=== PATIENT | female | born 1945 | race Caucasian/White ===

== ENCOUNTER 2023-03-05 20:14 | Inpatient (IN) | payer MEDICARE, SELFPAY ==
[2023-03-05 20:15] VITALS: BP 154/94; PULSE 130; RESP 15; TEMP 35.9; O2SAT 97; BMI 31.4
--- NOTE | 2023-03-05 21:09 | ED.VIS.DYS ---
HPI History of Present Illness Chief Complaint: Shortness of Breath Informant: patient Narrative Narrative: Patient has been noticing dyspnea with exertion for the past 2 or 3 days. She has had no other symptoms but this is unusual for her. She denies feeling any chest discomfort, lightheadedness, palpitations or racing heartbeat, edema in her legs, orthopnea. When she rests, she is asymptomatic. She states she was diagnosed with congestive heart failure months, she is on medications for that, she does not know why. Never had a heart attack or stent, she denies having uncontrolled hypertension that she knows of, or dysrhythmias. [facility] Medical History CHF (congestive heart failure) HTN (hypertension) Hyperlipidemia Home Medications atorvastatin 40 mg tablet 40 mg PO DAILY 03/05/23 [History Last Taken Unknown] biotin 5,000 mcg chewable tablet 5,000 mcg PO DAILY 03/05/23 [History Last Taken Unknown] cholecalciferol (vitamin D3) 25 mcg (1,000 unit) capsule 25 mcg PO DAILY 03/05/23 [History Last Taken Unknown] furosemide 20 mg tablet 20 mg PO DAILY 03/05/23 [History Last Taken Unknown] lisinopril 30 mg tablet 30 mg PO DAILY 03/05/23 [History Last Taken Unknown] magnesium 250 mg tablet 250 mg PO DAILY 03/05/23 [History Last Taken Unknown] mecobalamin (vitamin B12) 500 mcg chewable tablet 500 mcg PO DAILY 03/05/23 [History Last Taken Unknown] metformin 500 mg tablet,extended release 24 hr 1,000 mg PO BID 03/05/23 [History Last Taken Unknown] metoprolol tartrate 25 mg tablet 12.5 mg PO Q12H 03/05/23 [History Last Taken Unknown] potassium chloride 20 mEq tablet,extended release(part/cryst) 10 meq PO BID 03/05/23 [History Last Taken Unknown] Allergy/AdvReac Type Severity Reaction Status Date / Time No Known Allergies Allergy Verified 03/05/23 20:18 Social History housing: house Smoking Status: Never smoker ROS ROS ED Constitutional Constitutional ED: Denies chills or fever(s) Eyes Eyes: Denies change in vision or diplopia ENT ENT ED: Denies rhinorrhea or sore throat Cardiovascular Cardiovascular: Denies chest pain, orthopnea or palpitations Respiratory/Chest Respiratory/Chest: Reports dyspnea on exertion; Denies cough or orthopnea Gastrointestinal Gastrointestinal: Denies abdominal pain, diarrhea, nausea or vomiting Genitourinary Genitourinary ED: Denies dysuria or hematuria Musculoskeletal Musculoskeletal: Denies back pain or neck pain Integumentary Denies abscess or rash Neurologic Neurologic: Denies headache(s), paresthesias or weakness Psychiatric Psychiatric: Denies anxiety or suicidal thoughts EXAM Physical Exam Const Vital Signs: 03/05/23 20:15 03/05/23 21:12 03/05/23 21:25 Temperature 96.7 F L Temperature Source Temporal Pulse Rate 130 H 138 H Respiratory Rate 15 Blood Pressure 154/94 H 135/104 H Blood Pressure Mean 114 114 Pulse Ox 97 Oxygen Delivery Method Room Air Room Air 03/05/23 22:54 Temperature Temperature Source Pulse Rate 138 H Respiratory Rate 21 H Blood Pressure 140/108 H Blood Pressure Mean 118 Pulse Ox Oxygen Delivery Method Positive well nourished and well developed General Appearance ED: well developed and NAD HEENT Reports moist mucous membranes normocephalic and atraumatic Eyes PERRL and EOMs intact bilaterally Neck full ROM, supple and no JVD Resp normal respiratory effort and clear to auscultation bilaterally Cardio no murmurs Rate: tachycardic Rhythm: abnormal rhythm irregularly irregular GI non-tender and non-distended Auscultation: normoactive bowel sounds Palpation: soft Back/Spine no CVA tenderness General Back: other FROM Extremity normal to inspection General Extremety ED: Negative for edema, pulses abnormal or tenderness General Extremity: Negative for edema or pulses abnormal Neuro oriented x3, CN's II-XII intact bilaterally and no sensory deficits noted Sensorium / Orientation: awake and alert Motor Exam: strength 5/5 throughout Psych mental status grossly normal Skin no rashes or lesions noted and no wounds MDM MDM MDM Narrative Medical decision making narrative: EKG obtained patient appears to be in A-fib with RVR, she is not symptomatic at rest with this, although she is tachycardic at rest and that she is on metoprolol 12.5 mg twice daily. She states within the last month or 2, this was decreased from 25 mg twice daily because she was feeling tired/weak. While working her up, she was given Cardizem 20 mg IV, this resulted in an occasional dip into the 90s with her heart rate but for the most part staying in the 130s. Pressure came down to the 130s, staying stable. We ambulated her a little, still dyspneic and HR staying 120-130's. Given that we are not able to easily rate control her, I am starting her on a Cardizem drip, plan will be to admit her to the hospital. Her troponin is nonspecifically elevated, not high enough to be consistent with an NSTEMI, this will be repeated. Her [id number] 2 score is 5, qualifying her for anticoagulation. Chest x-ray 2 views on my interpretation does not show acute CHF although radiology notes Dre B lines suggesting some interstitial edema, and with her mild renal insufficiency her proBNP is only in the 200s, suggesting she is not in florid decompensated congestive heart failure. We did work her up for a possibility of a PE although she has no specific risk for this, her D-dimer is well within normal limits, ruling that out at this time given that she meets Wells criteria to undergo that test for that reason. Lovenox 1 mg/kg subcu given, and we will start her on a Cardizem drip and admit her to the hospital. [id number] Score for Atrial Fibrillation Stroke Risk from [email or web address] on 03/05/2023 All calculations should be rechecked by clinician prior to use RESULT SUMMARY: 5 points Stroke risk was 7.2% per year in >90,000 patients (the [place] Atrial Fibrillation Cohort Study) and 10.0% risk of stroke/TIA/systemic embolism. One recommendation suggests a 0 score for men or 1 score for women (no clinical risk factors) is ?low? risk and may not require anticoagulation; a 1 score for men or 2 score for women is ?low-moderate? risk and should consider antiplatelet or anticoagulation; and a score >= for men or >= for women is ?moderate-high? risk and should otherwise be an anticoagulation candidate. INPUTS: Age ?> 2 = >=5 Sex ?> 1 = Female CHF history ?> 1 = Yes Hypertension history ?> 1 = Yes Stroke/TIA/thromboembolism history ?> 0 = No Vascular disease history (prior [place], peripheral artery disease, or aortic plaque) ?> 0 = No Diabetes history ?> 0 = No Lab Data Attestation: I reviewed the patient's lab results. Labs: Laboratory Results - last 24 hr 03/05/23 03/05/23 21:22 22:18 WBC 7.7 RBC 4.09 L Hgb 11.8 L Hct 37.4 MCV 91.4 MCH 28.9 MCHC 31.6 L RDW Std Deviation 46.0 H RDW Coeff of Mayuri 13.9 Plt Count 193 MPV 10.7 Immature Gran % (Auto) 0.400 Neut % (Auto) 50.9 Lymph % (Auto) 37.2 [place] % (Auto) 8.4 Eos % (Auto) 2.5 Baso % (Auto) 0.6 Absolute Neuts (auto) 3.9 Absolute Lymphs (auto) 2.87 Nucleated RBC % 0 D-Dimer Quant (PE/DVT) 0.48 Sodium 139 Potassium 4.2 Chloride 108 H Carbon Dioxide 25.0 Anion Gap 6 BUN 27 H Creatinine 1.21 H Estim Creat Clear Calc 31.28 Est GFR (MDRD) Af Amer 56 L Est GFR (MDRD) Non-Af 46 L BUN/Creatinine Ratio 22.3 H Glucose 108 H Calcium 9.1 Troponin I High Sens 122 H* 130 H* B-Natriuretic Peptide 214.7 H Radiography Chest X-Ray - ED: 2 View, Read by ED Physician and No Acute Disease Diagnostic Testing: Clinical Impression(s) from Imaging Studies Chest X-Ray 03/05/23 21:58 IMPRESSION: The presence of Dre B lines suggests mild interstitial edema. Electronically Signed: Jose Kelley MD at 22:29 EDT , Rhythm Strip Rhythm Strip: A-fib Rate: 130 Ectopy: None EKG Initial EKG: Attestation: I personally reviewed and interpreted this EKG as follows: Interpretation: No Acute Injury Pattern, Atrial Fibrillation (w/ RVR) and Non-Specific ST Changes Prior EKG tracings: not available for review Prior: No Prior Management Discussion w/another healthcare provider: Hospitalist Critical Care Time Critical Care Time: Yes Critical care time (excluding procedures): 30-74 minutes (32 min), Including time spent:, Discussing w/Patient &/or Family/Assembly Stock Supervisor, Discussing w/Consultants, Arranging Admission or Transfer and Performing Direct Patient Care at Bedside Discharge Plan Triage Chief Complaint: Shortness of Breath ED Provider: Manohar Kiran Dx/Rx/DC Orders Clinical Impression: Elevated troponin I level, Renal insufficiency, Atrial fibrillation with RVR Prescriptions: No Action atorvastatin 40 mg tablet 40 mg PO DAILY potassium chloride 20 mEq tablet,ER particles/crystals 10 meq PO BID lisinopril 30 mg tablet 30 mg PO DAILY furosemide 20 mg tablet 20 mg PO DAILY metformin 500 mg tablet extended release 24 hr 1,000 mg PO BID metoprolol tartrate 25 mg tablet 12.5 mg PO Q12H mecobalamin (vitamin B12) 500 mcg tablet,chewable 500 mcg PO DAILY cholecalciferol (vitamin D3) 25 mcg (1,000 unit) capsule 25 mcg PO DAILY biotin 5,000 mcg tablet,chewable 5,000 mcg PO DAILY magnesium 250 mg tablet 250 mg PO DAILY Primary Care Provider: Matthew Lea Referrals: Matthew Lea MD [Primary Care Provider] -
[2023-03-05 21:25] VITALS: BP 135/104; PULSE 138
[2023-03-05] MEDS: dilTIAZem 25 MG/5 ML Vial 20 MG IV BOLUS (21:27)
[2023-03-05 21:31] LABS: Absolute Lymphocyte Count 2.87 X10^3/uL (0.83-4.51); Absolute Neutrophil Count 3.9 X10^3/uL (2.0-7.7); Basophil# 0.05 X10^3/uL; Basophil% 0.6 % (0-1); Eosinophil# 0.19 X10^3/uL; Eosinophils% 2.5 % (0-5); Hematocrit 37.4 % (37-47); Hemoglobin 11.8 g/dL (12.0-15.0); Lymphocyte # 2.87 X10^3/ul (0.83-4.51); Lymphocyte % 37.2 % (19-41); Mean Corp Hgb Conc 31.6 g/dL (32-36); Mean Corpuscular Hgb 28.9 pg (27.0-32.0); Mean Corpuscular Volume 91.4 fL (81-99); Mean Platelet Vol. 10.7 fl (6.2-12.0); Monocyte# 0.65 X10^3/uL; Monocyte% 8.4 % (0-10); NRBC Flagged by Analyzer 0 % (0-5); Neutrophil # 3.93 X10^3/uL (2.7-7.7); Neutrophil % 50.9 % (47-70); Platelet Count 193 K/mm3 (150-450); RBC Distribution Width CV 13.9 % (11.6-14.6); Red Blood Count 4.09 M/mm3 (4.2-5.4); White Blood Count 7.7 K/mm3 (4.4-11.0)
[2023-03-05 21:40] LABS: D-Dimer Quantitative (DVT/PE) 0.48 FEU/ug/m (0.27-0.49)
[2023-03-05 21:58] LABS: Anion Gap 6 (5-15); BUN 27 mg/dL (7-18); BUN/Creat Ratio 22.3 RATIO (10-20); Calcium,Total 9.1 mg/dL (8.5-10.1); Chloride 108 mmol/L (98-107); Creatinine, Serum 1.21 mg/dL (0.55-1.02); EST Glomerular Filtration Rate 46 mL/min (>60); Est Glom Filt Rate - Afr Amer 56 mL/min (>60); Estimated Creatinine Clearance 31.28 ml/min; Glucose 108 mg/dL (74-106); Potassium 4.2 mmol/L (3.5-5.1); Sodium Level 139 mmol/L (136-145); Troponin-I HS 122 pg/mL (3.0-54.0)
--- NOTE | 2023-03-05 21:58 | RAD_ITS ---
INDICATION: dyspnea EXAMINATION/TECHNIQUE: X-RAY - XR Chest 2 Views COMPARISON: No relevant prior comparison study available FINDINGS: LINES/DEVICES: Cardiac leads overlie the chest. LUNGS: The lungs are well expanded. Dre B lines are noted. No dense consolidation. No effusion. No pneumothorax. MEDIASTINUM AND CARDIOVASCULAR STRUCTURES: Cardiac silhouette not enlarged. Central airways and mediastinal contour are unremarkable. BONES AND SOFT TISSUES: Degenerative changes throughout the spine. RAD/Chest PA and Lateral IMPRESSION: The presence of Dre B lines suggests mild interstitial edema. Electronically Signed: Jose Kelley MD at 22:29 EDT ,
[2023-03-05 22:01] LABS: BNP,B-Type NATRIURETIC PEPTIDE 214.7 pg/mL (0-100)
[2023-03-05] MEDS: Enoxaparin 80 MG/0.8 ML Syringe SC (22:31)
[2023-03-05 22:54] VITALS: BP 140/108; PULSE 138; RESP 21
[2023-03-05] MEDS: Diltiazem 125 MG in Dextrose 5%-Water (100mL Bag) 100 ML CONT INF (22:54)
[2023-03-05 22:55] LABS: Troponin-I HS 130 pg/mL (3.0-54.0)
--- NOTE | 2023-03-05 23:07 | PCM.HP.STD ---
[facility] - General General Date of Admission: 03/05/23 Date of Service: 03/05/23 Chief Complaint: Dyspnea on exertion HPI Narrative AVANI MENDEZ, is a 78 F significant history of congestive heart failure; hypertension; hyperlipidemia and diabetes mellitus who presents to the emergency department with 2 to 3 days of persistent dyspnea on exertion. Associated with her symptoms is mild pain in her left arm that she describes as a twinge. Her left arm pain occurred on the day before presentation and is no more. She reports that in the cause of 1 year she has gained about 30 pounds. She has gained this weight since she is unable to follow recommendations of weight watchers at this time. She was prescribed a new diet plan when she disclosed to weight watchers that she is diabetic. She is unable to follow this stringent diet plan and as such she has gained weight. She reports a weight gain of half pound in the past week or so. She uses 1 pillow to sleep chronically; and that has not changed. She denies paroxysmal dyspnea. She denies any edema. She reports a diagnosis of congestive not too long after hysterectomy. She had the hysterectomy about 20 years ago. Reportedly because of fatigue her metoprolol dose was decreased from 25 mg p.o. twice daily to 12.5 mg twice daily. [facility] Medical History (Updated 03/06/23 @ 00:[address] Heladio Guzman MD) CHF (congestive heart failure) HTN (hypertension) Hyperlipidemia Home Medications atorvastatin 40 mg tablet 40 mg PO DAILY 03/05/23 [History Last Taken Unknown] biotin 5,000 mcg chewable tablet 5,000 mcg PO DAILY 03/05/23 [History Last Taken Unknown] cholecalciferol (vitamin D3) 25 mcg (1,000 unit) capsule 25 mcg PO DAILY 03/05/23 [History Last Taken Unknown] furosemide 20 mg tablet 20 mg PO DAILY 03/05/23 [History Last Taken Unknown] lisinopril 30 mg tablet 30 mg PO DAILY 03/05/23 [History Last Taken Unknown] magnesium 250 mg tablet 250 mg PO DAILY 03/05/23 [History Last Taken Unknown] mecobalamin (vitamin B12) 500 mcg chewable tablet 500 mcg PO DAILY 03/05/23 [History Last Taken Unknown] metformin 500 mg tablet,extended release 24 hr 1,000 mg PO BID 03/05/23 [History Last Taken Unknown] metoprolol tartrate 25 mg tablet 12.5 mg PO Q12H 03/05/23 [History Last Taken Unknown] potassium chloride 20 mEq tablet,extended release(part/cryst) 10 meq PO BID 03/05/23 [History Last Taken Unknown] Allergy/AdvReac Type Severity Reaction Status Date / Time No Known Allergies Allergy Verified 03/05/23 20:18 Family History Other Diabetes Heart disease Surgical History H/O: hysterectomy Social History housing: house Smoking Status: Never smoker ROS ROS Narrative Pertinent positives and pertinent negatives as noted in HPI. All other systems were reviewed and are negative Vital Signs Vital Signs Vital Signs: 03/05/23 20:15 03/05/23 21:12 03/05/23 21:25 Temperature 96.7 F L Temperature Source Temporal Pulse Rate 130 H 138 H Respiratory Rate 15 Blood Pressure 154/94 H 135/104 H Blood Pressure Mean 114 114 Pulse Ox 97 Oxygen Delivery Method Room Air Room Air 03/05/23 22:54 Temperature Temperature Source Pulse Rate 138 H Respiratory Rate 21 H Blood Pressure 140/108 H Blood Pressure Mean 118 Pulse Ox Oxygen Delivery Method Weight Weight: 78.018 kg Body Mass Index (BMI) 31.4 Physical Exam Narrative Physical exam: General: Well-nourished, well-developed. Head: Normocephalic, atraumatic, no tenderness Eyes: Vision is grossly intact. EOMI ENT, no trauma, moist mucous membranes, no rhinorrhea Neck: Nontender, No thyromegaly. CVS: Tachycardia. Irregularly irregular rate and rhythm. S1-S2 present. No murmur, gallop or rub. Respiratory : clear to auscultation bilaterally, chest wall nontender Abdomen: Soft, nontender, nondistended, normal bowel sounds, no masses : Deferred Back: Nontender, no CVA tenderness, no midline spinal tenderness, deformities, step-offs Extremities: Nontender full range of motion, no trauma Skin: Normal color, no trauma, abrasions Neuro: Alert, oriented, cranial nerves II through XII grossly intact. Psychiatry: Normal mood. Normal affect. Not depressed. Not anxious. Results Lab / Micro Data 03/05/23 21:22 03/05/23 21:22 Labs: Laboratory Results - last 24 hr 03/05/23 21:22: WBC 7.7, RBC 4.09 L, Hgb 11.8 L, Hct 37.4, MCV 91.4, MCH 28.9, MCHC 31.6 L, RDW Std Deviation 46.0 H, RDW Coeff of Mayuri 13.9, Plt Count 193, MPV 10.7, Immature Gran % (Auto) 0.400, Neut % (Auto) 50.9, Lymph % (Auto) 37.2, [place] % (Auto) 8.4, Eos % (Auto) 2.5, Baso % (Auto) 0.6, Absolute Neuts (auto) 3.9, Absolute Lymphs (auto) 2.87, Nucleated RBC % 0, D-Dimer Quant (PE/DVT) 0.48, Sodium 139, Potassium 4.2, Chloride 108 H, Carbon Dioxide 25.0, Anion Gap 6, BUN 27 H, Creatinine 1.21 H, Estim Creat Clear Calc 31.28, Est GFR (MDRD) Af Amer 56 L, Est GFR (MDRD) Non-Af 46 L, BUN/Creatinine Ratio 22.3 H, Glucose 108 H, Calcium 9.1, Troponin I High Sens 122 H*, B-Natriuretic Peptide 214.7 H 03/05/23 22:18: Troponin I High Sens 130 H* Rhythm Strip Rhythm Strip: A-fib Rate: 130 Ectopy: None Radiology Impression Chest X-Ray 03/05/23 21:58 IMPRESSION: The presence of Dre B lines suggests mild interstitial edema. Electronically Signed: Jose Kelley MD at 22:29 EDT Reading Location ID and State: [facility] / [place] Tel , Service support , Assessment & Plan Assessment/Plan (1) Atrial fibrillation with RVR: (2) Elevated troponin I level: PLAN: Plan A-fib with RVR Telemetry showed A-fib with RVR. EKG personally interpreted showed A-fib with RVR. Place on PCU on telemetry Obtain echo Lovenox 1 mg per kilogram subcutaneous every 12 hours For rate control: Started on Cardizem drip in the emergency department and continued. Give x1 scheduled dose of metoprolol p.o. then continue home metoprolol. Potassium on presentation was normal. Magnesium continued. Home potassium supplementation continued. Check magnesium. Check TSH. Recheck BMP. Check lipid panel. Elevated troponin Troponin presentation was 122. Trended to 130. Likely heart rate mediated. But with a twinge in left it is concerning. Continue to trend. Lovenox as above. Diabetes mellitus Patient with euglycemia. Hold home metformin. Monitor Accu-Cheks Correction scale insulin ordered. Elevated creatinine Creatinine on presentation was 1.21. GFR is 56. No baseline in hospital system or community records to compare with. Trend BMP. Chronic congestive heart failure Review of community records shows start echocardiogram on 12/05/2021 patient had preserved ejection fraction but with stage II diastolic dysfunction. Mild tricuspid valve regurgitation. Mild pulmonary hypertension. Estimated right ventricular pressure was 46 mmHg. Trace mitral valve regurgitation. BNP on presentation was 214.7. Chest x-ray interpreted by radiology as appearance of Saritha B-lines. X-ray was independently interpreted by hospitalist: Agrees to radiology interpretation. With not excessive BNP this could be chronic. We will continue home Lasix. Cardiac and diabetic diet ordered. Fluid restriction ordered. Home furosemide continued. DVT prophylaxis Subcutaneous Lovenox ordered. Time spent in the patient's overall evaluation,decision-making process, review of diagnostic data, adjustment of management, discussion with other providers, nursing nursing and ancillary staff involved in patient's care documentation, 60 minutes. Charges/Coding Visit Charges Inpatient E&M: 13389 Init Hosp L3
[2023-03-05 23:40] VITALS: BP 149/99; PULSE 116; RESP 22; TEMP 36.7; O2SAT 96
[2023-03-05 23:45] VITALS: O2SAT 98
[2023-03-06] VITALS (31 sets, daily range): BP systolic 103–138; BP diastolic 61–105; PULSE 68–129; RESP 14–24; TEMP 36.5–36.7; O2SAT 92–98; BMI 32.1; BMI 31.9
[2023-03-06] MEDS: Diltiazem 125 MG in Dextrose 5%-Water (100mL Bag) 100 ML 10 MG CONT INF ×2 (00:46→12:08)
[2023-03-06] MEDS: Metoprolol Tartrate 25 MG Tablet PO ×2 (01:09→21:16)
[2023-03-06 01:24] LABS: Bedside Glucose 145 mg/dL (74-106)
[2023-03-06 04:02] LABS: Absolute Lymphocyte Count 2.98 X10^3/uL (0.83-4.51); Absolute Neutrophil Count 4.1 X10^3/uL (2.0-7.7); Basophil# 0.02 X10^3/uL; Basophil% 0.2 % (0-1); Eosinophil# 0.23 X10^3/uL; Eosinophils% 2.9 % (0-5); Hematocrit 36.1 % (37-47); Hemoglobin 11.4 g/dL (12.0-15.0); Lymphocyte # 2.98 X10^3/ul (0.83-4.51); Lymphocyte % 37.1 % (19-41); Mean Corp Hgb Conc 31.6 g/dL (32-36); Mean Corpuscular Hgb 29.1 pg (27.0-32.0); Mean Corpuscular Volume 92.1 fL (81-99); Mean Platelet Vol. 10.9 fl (6.2-12.0); Monocyte# 0.65 X10^3/uL; Monocyte% 8.1 % (0-10); NRBC Flagged by Analyzer 0 % (0-5); Neutrophil # 4.13 X10^3/uL (2.7-7.7); Neutrophil % 51.5 % (47-70); Platelet Count 194 K/mm3 (150-450); RBC Distribution Width CV 13.9 % (11.6-14.6); RBC Distribution Width SD 46.3 fl (35.1-43.9); Red Blood Count 3.92 M/mm3 (4.2-5.4)
[2023-03-06 04:40] LABS: Troponin-I HS 124 pg/mL (3.0-54.0)
[2023-03-06 04:45] LABS: Anion Gap 7 (5-15); BUN 23 mg/dL (7-18); BUN/Creat Ratio 23.3 RATIO (10-20); Calcium,Total 8.7 mg/dL (8.5-10.1); Chloride 111 mmol/L (98-107); Cholesterol 120 mg/dL (200); Creatinine, Serum 0.99 mg/dL (0.55-1.02); EST Glomerular Filtration Rate 58 mL/min (>60); Est Glom Filt Rate - Afr Amer 71 mL/min (>60); Estimated Creatinine Clearance 36.48 ml/min; Glucose 133 mg/dL (74-106); High Density Lipoprotein 57 mg/dL; Sodium Level 141 mmol/L (136-145); Thyroid Stim Hormone (TSH) 2.19 uIU/mL (0.358-3.74); Triglycerides 99 mg/dL; Very Low Density Lipoprotein 20 mg/dL (5-40)
--- NOTE | 2023-03-06 05:55 | ECHOD_ITS ---
Reason For Study: AFib/Flutter Procedure This was a 2D Doppler, Color Flow transthoracic echocardiogram. Exam performed portable in patient room. Left Ventricle Normal size and thickness. The left ventricular ejection fraction is 45 %. Unable to assess diastolic dysfunction due to arrhythmia. Right Ventricle Normal RV size. Mild to moderate global right ventricular systolic dysfunction. Atria The left atrium is severely enlarged. The right atrium is moderately enlarged. Mitral Valve Mild-Moderate (1-2+) eccentric mitral valve insufficiency. Tricuspid Valve Moderately severe (3+) eccentric tricuspid valve insufficiency. Right ventricular systolic pressure estimated to be 40 mmHg. Aortic Valve Trisinus/trileaflet aortic valve. Pulmonic Valve The pulmonic valve is not well visualized. Great Vessels Normal sized aortic root. Pericardium/Pleural No pericardial effusion. MMode/2D Measurements & Calculations LVIDd: 5.4 cm IVSd: 1.0 cm Ao root diam: 3.2 cm LVIDs: 4.8 cm LVPWd: 1.0 cm LA dimension: 4.8 cm RVDd: 3.4 cm FS: 12.2 % LAV(MOD-bp): 77.0 ml LVAd ap4: 32.0 cm2 SV(MOD-sp4): 42.9 ml LAV(MOD-bp) Indexed: 43.0 ml/m2 LVLd ap4: 7.9 cm LAV(MOD-sp2): 68.2 ml EDV(MOD-sp4): 109.2 ml LAV(MOD-sp4): 71.7 ml EDV(sp4-el): 110.6 ml LVAs ap4: 24.0 cm2 LVLs ap4: 7.5 cm ESV(MOD-sp4): 66.3 ml ESV(sp4-el): 65.7 ml EF(MOD-sp4): 39.3 % EF(sp4-el): 40.6 % SV(sp4-el): 44.9 ml LA A4 area: 23.0 cm2 RA A4 area: 20.5 cm2 TAPSE: 1.5 cm Doppler Measurements & Calculations MV E max joe: 91.4 cm/sec Lat Peak E' Joe: 9.5 cm/sec Med Peak E' Joe: 9.9 cm/sec E/E' lat: 9.6 E/E' med: 9.2 MV V2 max: 115.0 cm/sec Ao V2 max: 96.9 cm/sec LV V1 max: 92.4 cm/sec MV max P.3 mmHg Ao max P.9 mmHg LV V1 max P.5 mmHg MV V2 mean: 53.5 cm/sec Ao V2 mean: 67.4 cm/sec LV V1 mean P.0 mmHg MV mean P.6 mmHg Ao mean P.1 mmHg LV V1 mean: 65.7 cm/sec MV V2 VTI: 28.0 cm Ao V2 VTI: 20.2 cm LV V1 VTI: 17.3 cm AV (velocity ratio): 0.86 PA V2 max: 56.0 cm/sec TR max joe: 295.1 cm/sec TR max P.8 mmHg ECHO/Echo Complete Interpretation Summary The left ventricular ejection fraction is 40-45 %. Unable to assess diastolic dysfunction due to arrhythmia. Mild to moderate global right ventricular systolic dysfunction. The left atrium is severely enlarged. Mild-Moderate (1-2+) eccentric mitral valve insufficiency. Moderately severe (3+) eccentric tricuspid valve insufficiency. Right ventricular systolic pressure estimated to be 40 mmHg. Ordering Physician: Heladio Guzman Performed By: Crow Rankin RCS
[2023-03-06 06:45] LABS: Bedside Glucose 124 mg/dL (74-106)
[2023-03-06] MEDS: Potassium Chloride Oral Tablet 20 MEQ 10 MEQ PO ×2 (09:23→21:14)
[2023-03-06] MEDS: Cyanocobalamin 500 MCG Tablet PO (09:23)
[2023-03-06] MEDS: Metoprolol Tartrate 25 MG Tablet 12.5 MG PO (09:23)
[2023-03-06] MEDS: Cholecalciferol (VIT D3) 25 MCG TABLET (1,000 UNITS) PO (09:24)
[2023-03-06] MEDS: Magnesium Chloride 64 MG Delay Rel.Tablet PO (09:24)
[2023-03-06] MEDS: Furosemide 20 MG Tablet PO (09:24)
[2023-03-06] MEDS: Lisinopril 10 MG Tablet 30 MG PO (09:24)
[2023-03-06] MEDS: Enoxaparin 80 MG/0.8 ML Syringe SC ×2 (09:24→21:18)
[2023-03-06] MEDS: Insulin Lispro 100 UNIT/ML INSULN.PEN SC ×2 (11:36→21:28)
[2023-03-06 11:48] LABS: Bedside Glucose 228 mg/dL (74-106)
--- NOTE | 2023-03-06 15:25 | PN.HOSP_ITS ---
Subjective Subjective Doing well, no issues overnight. Short of breath has improved and heart rate is controlled on the Cardizem drip Objective Data Objective Data Vital Signs: Vital Signs Temp Pulse Resp BP Pulse Ox O2 Del Method 97.8 F 69 17 120/68 94 Room Air 03/06/23 14:00 03/06/23 15:00 03/06/23 15:00 03/06/23 15:00 03/06/23 15:00 03/06/23 15:00 Oxygen Delivery Method Room Air Weight: 169 lb 5.04 oz Body Mass Index (BMI) 31.9 Intake & Output: Intake and Output for Last 24 Hours 03/05/23 03/06/23 03/07/23 03:59 03:59 03:59 Intake Total 147.33 / 157.33 480.00 / 480.00 Output Total 600 / 600 Balance 147.33 / 157.33 -120.00 / -120.00 Lab / Micro Data 03/06/23 03:37 03/06/23 03:37 Labs: Laboratory Results - last 24 hr 03/05/23 21:22: WBC 7.7, RBC 4.09 L, Hgb 11.8 L, Hct 37.4, MCV 91.4, MCH 28.9, MCHC 31.6 L, RDW Std Deviation 46.0 H, RDW Coeff of Mayuri 13.9, Plt Count 193, MPV 10.7, Immature Gran % (Auto) 0.400, Neut % (Auto) 50.9, Lymph % (Auto) 37.2, Mo no % (Auto) 8.4, Eos % (Auto) 2.5, Baso % (Auto) 0.6, Absolute Neuts (auto) 3.9, Absolute Lymphs (auto) 2.87, Nucleated RBC % 0, D-Dimer Quant (PE/DVT) 0.48, Sodium 139, Potassium 4.2, Chloride 108 H, Carbon Dioxide 25.0, Anion Gap 6, BUN 27 H, Creatinine 1.21 H, Estim Creat Clear Calc 31.28, Est GFR (MDRD) Af Amer 56 L, Est GFR (MDRD) Non-Af 46 L, BUN/Creatinine Ratio 22.3 H, Glucose 108 H, Calcium 9.1, Troponin I High Sens 122 H*, B-Natriuretic Peptide 214.7 H 03/05/23 22:18: Troponin I High Sens 130 H* 03/06/23 00:52: POC Glucose 145 H 03/06/23 03:37: WBC 8.0, RBC 3.92 L, Hgb 11.4 L, Hct 36.1 L, MCV 92.1, MCH 29.1, MCHC 31.6 L, RDW Std Deviation 46.3 H, RDW Coeff of Mayuri 13.9, Plt Count 194, MPV 10.9, Immature Gran % (Auto) 0.200, Neut % (Auto) 51.5, Lymph % (Auto) 37.1, [place] % (Auto) 8.1, Eos % (Auto) 2.9, Baso % (Auto) 0.2, Absolute Neuts (auto) 4 .1, Absolute Lymphs (auto) 2.98, Nucleated RBC % 0, Sodium 141, Potassium 4.0, Chloride 111 H, Carbon Dioxide 23.0, Anion Gap 7, BUN 23 H, Creatinine 0.99, Estim Creat Clear Calc 36.48, Est GFR (MDRD) Af Amer 71, Est GFR (MDRD) Non-Af 58 L, BUN/Creatinine Ratio 23.3 H, Glucose 133 H, Calcium 8.7, Magnesium 2.0, Troponin I High Sens 124 H*, Triglycerides 99, Cholesterol 120, LDL Cholesterol 43, VLDL Cholesterol 20, HDL Cholesterol 57, TSH 2.19 03/06/23 06:13: POC Glucose 124 H 03/06/23 11:30: POC Glucose 228 H Radiography Diagnostic Testing: Radiology Impression Chest X-Ray 03/05/23 21:58 IMPRESSION: The presence of Dre B lines suggests mild interstitial edema. Electronically Signed: Jose Kelley MD at 22:29 EDT , Echocardiogram 03/06/23 05:55 Interpretation Summary The left ventricular ejection fraction is 40-45 %. Unable to assess diastolic dysfunction due to arrhythmia. Mild to moderate global right ventricular systolic dysfunction. The left atrium is severely enlarged. Mild-Moderate (1-2+) eccentric mitral valve insufficiency. Moderately severe (3+) eccentric tricuspid valve insufficiency. Right ventricular systolic pressure estimated to be 40 mmHg. Ordering Physician: Heladio Guzman Performed By: Crow Rankin RCS Rhythm Strip Rhythm Strip: A-fib Rate: 130 Ectopy: None Physical Exam Narrative General: Alert, Oriented x3, Cooperative, No apparent distress HEENT: Atraumatic, PERRLA, EOMI, Normocephalic Oral: Moist Mucosa Neck: Supple, No JVD Lungs: Diminished, Normal air movement, No rhonchi, No wheeze, No rales Cardiovascular: Regular rate, irregular rhythm, Normal S1, Normal S2, No murmurs Abdomen: Soft, Non Tender, Non-Distended, No Hepato-splenomegaly Extremities: No edema, Capillary Refill Less than 3 Seconds Skin: No rashes, No breakdown Musculoskeletal: No Tenderness to Palpation of Joints or Extremities Neurological: Cranial nerves II-XII grossly intact, Motor Exam 5/5 strength throughout, Sensory exam intact to light touch and pain Psych/Mental Status: Normal Affect, Appropriate Assessment & Plan Assessment/Plan (1) Atrial fibrillation with RVR: (2) Elevated troponin I level: PLAN: Plan 1. A-fib/flutter with RVR with an elevated troponin/HTN/HLD/chronic diastolic CHF ? Telemetry shows A-fib/flutter with RVR on admission ? Heart rate is improved with Cardizem, will discontinue and transition to an increased dose of her p.o. metoprolol ? Echo with EF of 40 to 45% and an RVSP of 40 mmHg ?TSH is normal ? Given the EF will consult cardiology to establish care and possible further work-up ? Continue with Lasix and lisinopril ? Continue with Lipitor ? Per admitting documentation community records demonstrated echo on 12/05/2021 with an EF that was normal and a stage II diastolic dysfunction 2. DM2 ? We will hold metformin ? Sliding scale insulin ? Accu-Cheks ACHS ? We will monitor and make adjustments as necessary DVT: Lovenox Charges/Coding Visit Charges Inpatient E&M: 01448 Subs Hosp L2
[2023-03-06 16:54] LABS: Bedside Glucose 100 mg/dL (74-106)
[2023-03-06] MEDS: Atorvastatin Calcium 40 MG Tablet PO (21:15)
[2023-03-06 22:38] LABS: Bedside Glucose 136 mg/dL (74-106)
[2023-03-06] MEDS: Metoprolol Tartrate 5 MG/5 ML Vial IV (23:48)
[2023-03-07] VITALS (12 sets, daily range): BP systolic 100–131; BP diastolic 65–88; PULSE 73–131; RESP 16–18; TEMP 36.5–37.2; O2SAT 96–98; BMI 31.6
[2023-03-07] MEDS: Metoprolol Tartrate 5 MG/5 ML Vial IV (01:54)
[2023-03-07] MEDS: Metoprolol Tartrate 25 MG Tablet 12.5 MG PO (04:34)
[2023-03-07 06:50] LABS: Bedside Glucose 137 mg/dL (74-106)
[2023-03-07 07:31] LABS: Absolute Lymphocyte Count 2.22 X10^3/uL (0.83-4.51); Basophil# 0.03 X10^3/uL; Basophil% 0.5 % (0-1); Eosinophil# 0.16 X10^3/uL; Eosinophils% 2.7 % (0-5); Hematocrit 39.2 % (37-47); Hemoglobin 12.4 g/dL (12.0-15.0); Lymphocyte # 2.22 X10^3/ul (0.83-4.51); Lymphocyte % 36.9 % (19-41); Mean Corp Hgb Conc 31.6 g/dL (32-36); Mean Corpuscular Hgb 28.7 pg (27.0-32.0); Mean Corpuscular Volume 90.7 fL (81-99); Mean Platelet Vol. 10.7 fl (6.2-12.0); Monocyte# 0.58 X10^3/uL; Monocyte% 9.7 % (0-10); NRBC Flagged by Analyzer 0 % (0-5); Neutrophil # 3.01 X10^3/uL (2.7-7.7); Platelet Count 195 K/mm3 (150-450); RBC Distribution Width CV 14.1 % (11.6-14.6); RBC Distribution Width SD 46.9 fl (35.1-43.9); Red Blood Count 4.32 M/mm3 (4.2-5.4)
[2023-03-07 07:50] LABS: Anion Gap 4 (5-15); BUN 14 mg/dL (7-18); BUN/Creat Ratio 16.5 RATIO (10-20); Calcium,Total 8.8 mg/dL (8.5-10.1); Chloride 111 mmol/L (98-107); Creatinine, Serum 0.85 mg/dL (0.55-1.02); EST Glomerular Filtration Rate 69 mL/min (>60); Est Glom Filt Rate - Afr Amer 84 mL/min (>60); Estimated Creatinine Clearance 42.49 ml/min; Glucose 136 mg/dL (74-106); Sodium Level 141 mmol/L (136-145)
--- NOTE | 2023-03-07 08:50 | NURSING ---
Pt to stress test via [employer]
--- NOTE | 2023-03-07 10:12 | CON.PCM.CA_ITS ---
Assessment & Plan Assessment/Plan (1) Atrial fibrillation: PLAN: Continue metoprolol for rate control. Start on digoxin. Chronic oral anticoagulation recommended. Risks benefits discussed with patient. She understand these and wishes to proceed. Recommend starting on Eliquis 5 mg twice daily upon discharge. (2) Cardiomyopathy: PLAN: Likely tachycardia induced. Check Lexiscan stress Myoview. CHAO inhibit ors. Beta-blockers. Start on SGLT2 inhibitors. (3) Elevated troponin I level: PLAN: Likely type II elevation. Check Lexiscan stress Myoview. (4) HTN (hypertension): PLAN: As we have started patient on metoprolol, I will decrease lisinopril dose to 5 mg once daily. Monitor. (5) Dyslipidemia: PLAN: Atorvastatin. (6) Diabetes mellitus: PLAN: As per internal medicine. HPI Consult Data Date of Consult: 03/07/23 HPI Narrative Reason for Consultation: Cardiomyopathy HPI Narrative: 78-year-old female that describes a past medical history of hypertension, congestive heart failure, dyslipidemia and diabetes mellitus. She presented to the emergency room with complaints of shortness of breath on exertion. According to her, that started 2 to 3 days prior to her presentation to the ER. No associated chest pain. No diaphoresis. She was noted to be in atrial fibrillation with rapid ventricular response. An echocardiogram was done for the patient. It showed ejection fraction of 40 to 45%. Patient denies any orthopnea. Denies paroxysmal nocturnal dyspnea. Denies any ankle edema. Denies any prior history of dyspnea on exertion or angina. FORMERLY [facility], [facility] Medical History (Updated 03/07/23 @ 10:[address] Vik Fuentes MD) CHF (congestive heart failure) HTN (hypertension) Hyperlipidemia Home Medications atorvastatin 40 mg tablet 40 mg PO DAILY 03/05/23 [History Last Taken Unknown] biotin 5,000 mcg chewable tablet 5,000 mcg PO DAILY 03/05/23 [History Last Taken Unknown] cholecalciferol (vitamin D3) 25 mcg (1,000 unit) capsule 25 mcg PO DAILY 03/05/23 [History Last Taken Unknown] furosemide 20 mg tablet 20 mg PO DAILY 03/05/23 [History Last Taken Unknown] lisinopril 30 mg tablet 30 mg PO DAILY 03/05/23 [History Last Taken Unknown] magnesium 250 mg tablet 250 mg PO DAILY 03/05/23 [History Last Taken Unknown] mecobalamin (vitamin B12) 500 mcg chewable tablet 500 mcg PO DAILY 03/05/23 [History Last Taken Unknown] metformin 500 mg tablet,extended release 24 hr 1,000 mg PO BID 03/05/23 [History Last Taken Unknown] metoprolol tartrate 25 mg tablet 12.5 mg PO Q12H 03/05/23 [History Last Taken Unknown] potassium chloride 20 mEq tablet,extended release(part/cryst) 10 meq PO BID 03/05/23 [History Last Taken Unknown] Allergy/AdvReac Type Severity Reaction Status Date / Time No Known Allergies Allergy Verified 03/05/23 20:18 Family History Other Diabetes Heart disease Surgical History H/O: hysterectomy Social History housing: house Smoking Status: Never smoker Physical Exam Const Constitutional Narrative: Comfortable. Lying flat in the bed. No apparent distress. Heart sounds 1 and 2 are noted. Irregularly irregular. Chest clear to auscultation bilaterally. Abdomen soft. Alert oriented x3. No ankle edema. Risk Stratification Risk Stratification Applicable: No Objective Data Vital Signs: Vital Signs Temp Pulse Resp BP Pulse Ox O2 Del Method 97.8 F 129 H 18 100/75 96 Room Air 03/07/23 04:32 03/07/23 04:34 03/07/23 04:32 03/07/23 04:34 03/07/23 07:19 03/07/23 07:19 Oxygen Delivery Method Room Air Weight: 167 lb 8.821 oz Body Mass Index (BMI) 31.6 Intake & Output: Intake and Output for Last 24 Hours 03/05/23 03/06/23 03/07/23 23:59 23:59 23:59 Intake Total 873.58 / 1113.58 240 / 240 Output Total 800 / 1350 550 / 550 Balance 73.58 / -236.42 -310 / -310 Lab / Micro Data 03/07/23 06:46 03/07/23 06:46 Labs: Laboratory Results - last 24 hr 03/06/23 11:30: POC Glucose 228 H 03/06/23 16:36: POC Glucose 100 03/06/23 21:26: POC Glucose 136 H 03/07/23 06:31: POC Glucose 137 H 03/07/23 06:46: WBC 6.0, RBC 4.32, Hgb 12.4, Hct 39.2, MCV 90.7, MCH 28.7, MCHC 31.6 L, RDW Std Deviation 46.9 H, RDW Coeff of Mayuri 14.1, Plt Count 195, MPV 10.7, Immature Gran % (Auto) 0.200, Neut % (Auto) 50.0, Lymph % (Auto) 36.9, [place] % (Auto) 9.7, Eos % (Auto) 2.7, Baso % (Auto) 0.5, Absolute Neuts (auto) 3.0, Absolute Lymphs (auto) 2.22, Nucleated RBC % 0, Sodium 141, Potassium 4.0, Chloride 111 H, Carbon Dioxide 26.0, Anion Gap 4 L, BUN 14, Creatinine 0.85, Estim Creat Clear Calc 42.49, Est GFR (MDRD) Af Amer 84, Est GFR (MDRD) Non-Af 69, BUN/Creatinine Ratio 16.5, Glucose 136 H, Calcium 8.8 Rhythm Strip Rhythm Strip: A-fib Rate: 130 Ectopy: None Cardiology Labs/Tests 03/07/23 06:46: WBC 6.0, RBC 4.32, Hgb 12.4, Hct 39.2, MCV 90.7, MCH 28.7, MCHC 31.6 L, Plt Count 195, MPV 10.7, Immature Gran % (Auto) 0.200, Neut % (Auto) 50.0, Lymph % (Auto) 36.9, [place] % (Auto) 9.7, Eos % (Auto) 2.7, Baso % (Auto) 0.5, Absolute Neuts (auto) 3.0, Nucleated RBC % 0, Sodium 141, Potassium 4.0, Chloride 111 H, Carbon Dioxide 26.0, Anion Gap 4 L, BUN 14, Creatinine 0.85, Est GFR (MDRD) Af Amer 84, Est GFR (MDRD) Non-Af 69, BUN/Creatinine Ratio 16.5, Glucose 136 H, Calcium 8.8 Rhythm: Atrial fibrillation. EKG: ECG done in the emergency room showed atrial fibrillation with rapid ventricular response. ECHO: Stress Test: Cardiac Cath: PCI: CT Surgery: Holter monitor: EPS: PPM: CXR: Chest CT Scan: Radiography Diagnostic Testing: Radiology Impression Echocardiogram 03/06/23 05:55 Interpretation Summary The left ventricular ejection fraction is 40-45 %. Unable to assess diastolic dysfunction due to arrhythmia. Mild to moderate global right ventricular systolic dysfunction. The left atrium is severely enlarged. Mild-Moderate (1-2+) eccentric mitral valve insufficiency. Moderately severe (3+) eccentric tricuspid valve insufficiency. Right ventricular systolic pressure estimated to be 40 mmHg. Ordering Physician: Heladio Guzman Performed By: Crow Rankin RCS
--- NOTE | 2023-03-07 11:09 | CASEMGMT ---
RN CM note: RN CM to room to complete initial RN CM assessment. Pt out of room at this time. Karrie BSN RN CM
[2023-03-07] MEDS: Digoxin 250 MCG/ML Ampul 500 MCG IV (12:21)
[2023-03-07] MEDS: 0.9% Saline Lock 10 ML Syringe IV (12:21)
[2023-03-07] MEDS: Magnesium Chloride 64 MG Delay Rel.Tablet PO (12:22)
[2023-03-07] MEDS: Cyanocobalamin 500 MCG Tablet PO (12:22)
[2023-03-07] MEDS: Lisinopril 5 MG Tablet PO (12:22)
[2023-03-07] MEDS: Cholecalciferol (VIT D3) 25 MCG TABLET (1,000 UNITS) PO (12:22)
[2023-03-07] MEDS: Metoprolol Tartrate 50 MG Tablet PO ×2 (12:23→21:53)
[2023-03-07] MEDS: Furosemide 20 MG Tablet PO (12:23)
[2023-03-07] MEDS: Potassium Chloride Oral Tablet 20 MEQ 10 MEQ PO ×2 (12:23→21:53)
[2023-03-07] MEDS: Empagliflozin 10 MG Tablet PO (12:26)
--- NOTE | 2023-03-07 12:28 | PN.HOSP_ITS ---
Subjective Subjective Went into tachycardia again overnight was given 2 doses of IV Lopressor and then 12.5 mg dose of p.o. metoprolol earlier this morning. Objective Data Objective Data Vital Signs: Vital Signs Temp Pulse Resp BP Pulse Ox O2 Del Method 99.0 F 130 H 16 118/88 H 97 Room Air 03/07/23 12:14 03/07/23 12:23 03/07/23 12:14 03/07/23 12:14 03/07/23 12:14 03/07/23 12:14 Oxygen Delivery Method Room Air Weight: 167 lb 8.821 oz Body Mass Index (BMI) 31.6 Intake & Output: Intake and Output for Last 24 Hours 03/06/23 03/07/23 03/08/23 03:59 03:59 03:59 Intake Total 147.33 / 157.33 966.25 / 966.25 0 / 0 Output Total 1350 / 1350 Balance 147.33 / 157.33 -383.75 / -383.75 0 / 0 Lab / Micro Data 03/07/23 06:46 03/07/23 06:46 Labs: Laboratory Results - last 24 hr 03/06/23 16:36: POC Glucose 100 03/06/23 21:26: POC Glucose 136 H 03/07/23 06:31: POC Glucose 137 H 03/07/23 06:46: WBC 6.0, RBC 4.32, Hgb 12.4, Hct 39.2, MCV 90.7, MCH 28.7, MCHC 31.6 L, RDW Std Deviation 46.9 H, RDW Coeff of Mayuri 14.1, Plt Count 195, MPV 10.7, Immature Gran % (Auto) 0.200, Neut % (Auto) 50.0, Lymph % (Auto) 36.9, [place] % (Auto) 9.7, Eos % (Auto) 2.7, Baso % (Auto) 0.5, Absolute Neuts (auto) 3.0, Absolute Lymphs (auto) 2.22, Nucleated RBC % 0, Sodium 141, Potassium 4.0, Chloride 111 H, Carbon Dioxide 26.0, Anion Gap 4 L, BUN 14, Creatinine 0.85, Estim Creat Clear Calc 42.49, Est GFR (MDRD) Af Amer 84, Est GFR (MDRD) Non-Af 69, BUN/Creatinine Ratio 16.5, Glucose 136 H, Calcium 8.8 Radiography Diagnostic Testing: Radiology Impression Echocardiogram 03/06/23 05:55 Interpretation Summary The left ventricular ejection fraction is 40-45 %. Unable to assess diastolic dysfunction due to arrhythmia. Mild to moderate global right ventricular systolic dysfunction. The left atrium is severely enlarged. Mild-Moderate (1-2+) eccentric mitral valve insufficiency. Moderately severe (3+) eccentric tricuspid valve insufficiency. Right ventricular systolic pressure estimated to be 40 mmHg. Ordering Physician: Heladio Guzman Performed By: Crow Rankin RCS Rhythm Strip Rhythm Strip: A-fib Rate: 130 Ectopy: None Physical Exam Narrative General: Alert, Oriented x3, Cooperative, No apparent distress HEENT: Atraumatic, PERRLA, EOMI, Normocephalic Oral: Moist Mucosa Neck: Supple, No JVD Lungs: Diminished, Normal air movement, No rhonchi, No wheeze, No rales Cardiovascular: Tach after cardiac, irregular rhythm, Normal S1, Normal S2, No murmurs Abdomen: Soft, Non Tender, Non-Distended, No Hepato-splenomegaly Extremities: No edema, Capillary Refill Less than 3 Seconds Skin: No rashes, No breakdown Musculoskeletal: No Tenderness to Palpation of Joints or Extremities Neurological: Cranial nerves II-XII grossly intact, Motor Exam 5/5 strength throughout, Sensory exam intact to light touch and pain Psych/Mental Status: Normal Affect, Appropriate Assessment & Plan Assessment/Plan (1) Atrial fibrillation with RVR: (2) Elevated troponin I level: PLAN: Plan 1. A-fib/flutter with RVR with an elevated troponin/HTN/HLD/chronic diastolic CHF ? Telemetry shows A-fib/flutter with RVR on admission ? Heart rate is improved with Cardizem, will discontinue and transition to an increased dose of her p.o. metoprolol ? Echo with EF of 40 to 45% and an RVSP of 40 mmHg ?TSH is normal ?Stress results are pending, cardiology did order some digoxin for today and I increased her metoprolol to 50 mg p.o. daily which will be given now if she was down stress test. ? Continue with Lasix and lisinopril ? Continue with Lipitor ? Per admitting documentation community records demonstrated echo on 12/05/2021 with an EF that was normal and a stage II diastolic dysfunction 2. DM2 ? We will hold metformin ? Sliding scale insulin ? Accu-Cheks ACHS ? We will monitor and make adjustments as necessary DVT: Lovenox Charges/Coding Visit Charges Inpatient E&M: 08924 Subs Hosp L2
--- NOTE | 2023-03-07 13:48 | STRESSREP_ITS ---
Stress Test Report Date: 03/07/2023 Procedure: Pharmacologic stress nuclear imaging study Indications: Arrhythmia Consent: Per the patient Procedure: The patient underwent pharmacologic (Regadenoson 0.4mg ) evaluation with a peak heart rate of 133 beats per minute (92%predicted maximal heart rate) and a peak blood pressure of 118/80 mmHg. The baseline ECG demonstrated atrial fibrillation with right bundle branch block. The peak pharmacologic ECG demonstrated no diagnostic changes. Occasional PVCs noted. There was no complaint of chest discomfort during pharmacologic infusion or recovery. The patient was injected with 11.0 millicuries of technetium 99m Cardiolite and subsequently rest SPECT Cardiolite nuclear imaging was obtained in the horizontal long, vertical long, and short axis views. The patient underwent pharmacologic (Regadenoson) evaluation. The patient was injected with 34.7 millicuries of technetium 99m Cardiolite and subsequently stress SPECT Cardiolite nuclear imaging was obtained in the horizontal long, vertical long, and short axis views. A gated Cardiolite study at peak stress was obtained. The examination was stopped secondary to completion of protocol. Rest and stress SPECT Cardiolite nuclear imaging status post realignment, normalization, and attenuation correction demonstrate a small apical perfusion defect at rest which is exaggerated post Lexiscan. Gated images show mild generalized hypokinesis. The reported LVEF is 42%. Impression: 1. Pharmacologic (Regadenoson) evaluation 2. Peak pharmacologic ECG with no diagnostic changes secondary to baseline abnormalities. 3. Occasional PVCs noted. Baseline atrial fibrillation. 5. [Rest and stress SPECT Cardiolite nuclear imaging demonstrate small perfusion defect of the apex which exaggerates post Lexiscan infusion, suggestive of nontransmural infarct with mild chasidy-infarct ischemia. 6. The gated Cardiolite study reports an LVEF of 42%. This note was generated with [employer] software. It may contain incorrect words, spelling, and punctuation that were not noted in checking the note before signing.
--- NOTE | 2023-03-07 15:04 | PCM.PN.BLA ---
Progress Note Lexiscan stress Myoview suggestive of apical and septal ischemia. Discussed with patient. Offered coronary angiography with possible revascularization. Risks benefits and alternatives discussed. She wishes to think about it and also discuss with her granddaughter.
--- NOTE | 2023-03-07 15:48 | CASEMGMT ---
Insurance review for hospitals In-network with?[employer] insurance if transfer is recommended is as follows:. [facility], [place] [facility], [facility], [facility], [facility]), [facility] and . Ramona Olivo, Discharge Planning Asst.
[2023-03-07] MEDS: Digoxin 250 MCG/ML Ampul IV (17:38)
--- NOTE | 2023-03-07 17:42 | CASEMGMT ---
RN?CM?[employer]ICER?CM?to room to meet with patient for initial transition planning/care coordination?assessment.?RN?CM?introduced self and role at [facility].? Pt voices understanding and consents to?assessment?at this time.? Pt resting in bed in no distress at this time.? Carmelina ORTEGA, @ bedside and pt agreeable to her being present during assessment. Pt is A/O at this time and answers all questions appropriately.?? Care providers, pharmacy, and demographics verified/updated at this time. PCP: Dr Lea Specialists: none Preferred Pharmacy: [facility] Retail Insurance: [facility] Prescription Benefit:?Yes. Per Dr Fuentes note, pt to discharge home on Eliquis. Pt and Carmelina provided w/Eliquis 30-day savings card and instructed on use. Questions answered. Living Will/HPOA:? Pt is not sure if she has one a LW, but has done a HCPOA and Carmelina ORTEGA, is her HCPOA. LNOK: JORDAN/Carmelina RUIZ. Pt also has a daughter that lives out of state Living Arrangements: Lives alone in ranch-style home w/13 steps to enter. Pt states she does okay with the stairs. Indep w/ADL's, IADL's, and manages her own medications. Transportation:?Pt states drives self and states no transportation concerns at this time.? DME: States has the following DME:? cane she uses on occasion, functioning glucometer w/supplies. ?Pt states no need for further DME at this time.? HHC/SNF: No hx of either. Denies need for HHC and no needs identified. Pt wishes to return home and states has no concerns with going home at time of discharge.? CM?to follow for any discharge planning/needs.? Pt voices no further concerns/needs at this time.? Advised pt to ask for?CM?if any further questions/concerns/needs arise.? Voices understanding. PLAN:??Home Karrie RALPHN?RN?CM
[2023-03-07] MEDS: Enoxaparin 80 MG/0.8 ML Syringe SC (21:53)
[2023-03-07] MEDS: Atorvastatin Calcium 40 MG Tablet PO (21:53)
[2023-03-07 22:18] LABS: Bedside Glucose 101 mg/dL (74-106)
[2023-03-08] VITALS (16 sets, daily range): BP systolic 94–134; BP diastolic 51–91; PULSE 69–138; RESP 15–18; TEMP 36.5–36.7; O2SAT 93–99; BMI 31.1
[2023-03-08 05:14] LABS: Absolute Lymphocyte Count 2.43 X10^3/uL (0.83-4.51); Absolute Neutrophil Count 4.4 X10^3/uL (2.0-7.7); Basophil# 0.04 X10^3/uL; Basophil% 0.5 % (0-1); Eosinophil# 0.16 X10^3/uL; Eosinophils% 2.1 % (0-5); Hematocrit 42.8 % (37-47); Hemoglobin 13.4 g/dL (12.0-15.0); Lymphocyte # 2.43 X10^3/ul (0.83-4.51); Lymphocyte % 31.4 % (19-41); Mean Corp Hgb Conc 31.3 g/dL (32-36); Mean Corpuscular Hgb 28.4 pg (27.0-32.0); Mean Corpuscular Volume 90.7 fL (81-99); Mean Platelet Vol. 10.9 fl (6.2-12.0); Monocyte# 0.73 X10^3/uL; Monocyte% 9.4 % (0-10); NRBC Flagged by Analyzer 0 % (0-5); Neutrophil # 4.37 X10^3/uL (2.7-7.7); Neutrophil % 56.3 % (47-70); Platelet Count 200 K/mm3 (150-450); RBC Distribution Width CV 13.6 % (11.6-14.6); RBC Distribution Width SD 45.2 fl (35.1-43.9); Red Blood Count 4.72 M/mm3 (4.2-5.4); White Blood Count 7.8 K/mm3 (4.4-11.0)
[2023-03-08 05:45] LABS: Anion Gap 7 (5-15); BUN 17 mg/dL (7-18); BUN/Creat Ratio 19.2 RATIO (10-20); Calcium,Total 9.2 mg/dL (8.5-10.1); Chloride 108 mmol/L (98-107); Creatinine, Serum 0.89 mg/dL (0.55-1.02); EST Glomerular Filtration Rate 66 mL/min (>60); Est Glom Filt Rate - Afr Amer 80 mL/min (>60); Estimated Creatinine Clearance 40.58 ml/min; Glucose 96 mg/dL (74-106); Sodium Level 140 mmol/L (136-145)
[2023-03-08 06:22] LABS: Bedside Glucose 104 mg/dL (74-106)
[2023-03-08] MEDS: Magnesium Chloride 64 MG Delay Rel.Tablet PO (07:37)
[2023-03-08] MEDS: Lisinopril 5 MG Tablet PO (07:37)
[2023-03-08] MEDS: Cyanocobalamin 500 MCG Tablet PO (07:37)
[2023-03-08] MEDS: Digoxin 250 MCG Tablet PO (07:37)
[2023-03-08] MEDS: Cholecalciferol (VIT D3) 25 MCG TABLET (1,000 UNITS) PO (07:37)
[2023-03-08] MEDS: Metoprolol Tartrate 50 MG Tablet PO (07:37)
[2023-03-08] MEDS: Potassium Chloride Oral Tablet 20 MEQ 10 MEQ PO ×2 (07:37→21:10)
[2023-03-08] MEDS: Aspirin E.C. 81 MG Tablet PO (07:38)
--- NOTE | 2023-03-08 11:33 | CL.D_ITS ---
Patient Name: AVANI MENDEZ Study Date: 03/08/2023 Performing: Vik Fuentes MD Ht: 61 inches 154.94 cm : 1945 Wt: 164.69 lbs 74.7 kg Age: 78 Gender: female BSA: 1.74 PROCEDURE(S) PERFORMED DC01-(60717)LHC/COR/LV CLINICAL PROFILE AND INDICATIONS Indications: Suspected CAD, Congestive Heart Failure, New onset with suspected CAD Heart Failure: None Stress/Imaging Stress Test w/SPECT MPI: Yes Result: Positive Intermediate RiskStress Test with SPECT MPI: Positive Intermediate Risk Angina Classification Anginal Classification w/in 2 Weeks: No symptoms CAD Presentations: No Sxs, no angina. CONCLUSIONS Non-obstructive CAD LVEF 30% RECOMMENDATIONS Medical therapy DESCRIPTION OF PROCEDURE The patient arrived to the procedure lab. The risks and benefits of the procedure as well as a full description of our services here and current unavailability of surgical backup were fully explained to the patient and/or their significant other prior to the catheterization. The Timeout was completed, verifying the correct patient and procedure. The patient's procedural site was prepped and draped in the usual fashion. Local anesthetic was given subcutaneously to right radial region with Lidocaine 2%. Using a modified Seldinger technique, arterial access was obtained via the right radial artery, a 6Fr sheath was inserted. Left Coronary Artery selective angiography was performed in multiple views using a 5 Fr. 4.0 [place] catheter. Right Coronary Artery selective angiography was then performed in multiple views using a 5 Fr. 4.0 [place] catheter. Left Ventriculography was performed in PATTERSON projection using a 5 Fr. Pigtail catheter. LV to AO pullback pressures were then recorded.The arterial sheath was pulled and a TR Band was applied for hemostasis CORONARY ANGIOGRAPHY DOMINANCE: Right Dominant LEFT HEART ASSESSMENT Left Ventricular Ejection Fraction: by LV Gram 30 % LVEDP: 17 mmHg LEFT MAIN: Angiographically normal LEFT ANTERIOR DESCENDING ARTERY: LAD: Calcified 20% Proximal lesion in LAD Tubular 40% Proximal lesion in LAD Tubular 50% Mid lesion in LAD CIRCUMFLEX ARTERY: CIRCUMFLEX: Luminal Irregularities 10% Ostial lesion in Circumflex RIGHT CORONARY ARTERY: RCA: Calcified 30% Proximal lesion in RCA Tubular 50% Distal lesion in RCA Ectasia 50% Distal lesion in RCA COMPLICATIONS No Complications PROCEDURE MEDICATIONS Versed 1 mg IV Fentanyl 50 mcg IV Oxygen: 2 L/min via nasal cannula SUMMARY OF HEMODYNAMIC DATA Time AIR REST ECG 10:41:52 AO 115/68 (89) SA 11:08:54 LV 141/13, 18 11:17:37 LV 138/13, 17 11:18:12 LVp 128/15, 27 11:19:39 AOp 0/0 (51) 11:19:46 11:28:08 Signed By Vik Fuentes MD On 03/08/2023 11:32:44 Vik Fuentes MD
--- NOTE | 2023-03-08 11:37 | PCM.PN.BLA ---
Progress Note Nonobstructive coronary artery disease noted on coronary angiography. LVEF approximately 30% on LV gram. Nonischemic cardiomyopathy. Start on apixaban for atrial flutter/fibrillation. Continue digoxin. Increase metoprolol to 100 mg twice daily. May discharge home in the morning if heart rate controlled.
[2023-03-08] MEDS: Metoprolol Tartrate 25 MG Tablet PO (12:07)
[2023-03-08] MEDS: Empagliflozin 10 MG Tablet PO (12:08)
[2023-03-08] MEDS: Furosemide 20 MG Tablet PO (12:08)
[2023-03-08 13:54] LABS: Bedside Glucose 117 mg/dL (74-106)
--- NOTE | 2023-03-08 13:54 | PCM.PN.HOSP ---
Subjective Subjective Feels better than when she came in, and her heart rate is controlled even though she is still in A-fib Objective Data Objective Data Vital Signs: Vital Signs Temp Pulse Resp BP Pulse Ox O2 Del Method 97.8 F 73 16 115/72 93 Room Air 03/08/23 11:46 03/08/23 12:07 03/08/23 11:46 03/08/23 12:07 03/08/23 11:46 03/08/23 11:46 Oxygen Delivery Method Room Air Weight: 164 lb 10.965 oz Body Mass Index (BMI) 31.1 Intake & Output: Intake and Output for Last 24 Hours 03/07/23 03/08/23 03/09/23 03:59 03:59 03:59 Intake Total 966.25 / 966.25 100 / 100 60 / 60 Output Total 1350 / 1350 800 / 800 Balance -383.75 / -383.75 -700 / -700 60 / 60 Lab / Micro Data 03/08/23 04:10 03/08/23 04:10 Labs: Laboratory Results - last 24 hr 03/07/23 21:48: POC Glucose 101 03/08/23 04:10: WBC 7.8, RBC 4.72, Hgb 13.4, Hct 42.8, MCV 90.7, MCH 28.4, MCHC 31.3 L, RDW Std Deviation 45.2 H, RDW Coeff of Mayuri 13.6, Plt Count 200, MPV 10.9, Immature Gran % (Auto) 0.300, Neut % (Auto) 56.3, Lymph % (Auto) 31.4, Grimes % (Auto) 9.4, Eos % (Auto) 2.1, Baso % (Auto) 0.5, Absolute Neuts (auto) 4.4, Absolute Lymphs (auto) 2.43, Nucleated RBC % 0, Sodium 140, Potassium 4.0, Chloride 108 H, Carbon Dioxide 25.0, Anion Gap 7, BUN 17, Creatinine 0.89, Estim Creat Clear Calc 40.58, Est GFR (MDRD) Af Amer 80, Est GFR (MDRD) Non-Af 66, BUN/Creatinine Ratio 19.2, Glucose 96, Calcium 9.2 03/08/23 05:45: POC Glucose 104 Rhythm Strip Rhythm Strip: A-fib Rate: 130 Ectopy: None Physical Exam Narrative General: Alert, Oriented x3, Cooperative, No apparent distress HEENT: Atraumatic, PERRLA, EOMI, Normocephalic Oral: Moist Mucosa Neck: Supple, No JVD Lungs: Diminished, Normal air movement, No rhonchi, No wheeze, No rales Cardiovascular: Regular rate, irregular rhythm, Normal S1, Normal S2, No murmurs Abdomen: Soft, Non Tender, Non-Distended, No Hepato-splenomegaly Extremities: No edema, Capillary Refill Less than 3 Seconds Skin: No rashes, No breakdown Musculoskeletal: No Tenderness to Palpation of Joints or Extremities Neurological: Cranial nerves II-XII grossly intact, Motor Exam 5/5 strength throughout, Sensory exam intact to light touch and pain Psych/Mental Status: Normal Affect, Appropriate Assessment & Plan Assessment/Plan (1) Atrial fibrillation with RVR: (2) Elevated troponin I level: PLAN: Plan 1. A-fib/flutter with RVR with an elevated troponin/HTN/HLD/chronic diastolic CHF ? Telemetry shows A-fib/flutter with RVR on admission ? We will increase metoprolol and continue with digoxin ? Echo with EF of 40 to 45% and an RVSP of 40 mmHg ?TSH is normal ? Stress test yesterday showed a small apical perfusion defect at rest which was exaggerated post Lexiscan with an EF of 42% she proceeded with a cardiac cath today which showed nonobstructive coronary artery disease. ? Continue with Lasix and lisinopril ? Continue with Lipitor, and will discharge on Jardiance as well ? Per admitting documentation community records demonstrated echo on 12/05/2021 with an EF that was normal and a stage II diastolic dysfunction 2. DM2 ? We will hold metformin ? Sliding scale insulin ? Accu-Cheks ACHS ? We will monitor and make adjustments as necessary DVT: Eliquis Charges/Coding Visit Charges Inpatient E&M: 08443 Subs Hosp L2
[2023-03-08] MEDS: Insulin Lispro 100 UNIT/ML INSULN.PEN SC (16:28)
[2023-03-08 16:48] LABS: Bedside Glucose 175 mg/dL (74-106)
[2023-03-08] MEDS: Metoprolol Tartrate 100 MG Tablet PO (21:10)
[2023-03-08] MEDS: Atorvastatin Calcium 40 MG Tablet PO (21:10)
[2023-03-08] MEDS: APIXABAN 5 MG TABLET PO (21:11)
[2023-03-08 22:08] LABS: Bedside Glucose 146 mg/dL (74-106)
[2023-03-09 03:37] VITALS: BMI 31.1
[2023-03-09 04:10] VITALS: BP 105/67; PULSE 76; RESP 15; TEMP 36.4; O2SAT 98
[2023-03-09 06:52] LABS: Bedside Glucose 97 mg/dL (74-106)
[2023-03-09 07:45] VITALS: O2SAT 92
[2023-03-09 10:01] VITALS: BP 115/71; PULSE 99; RESP 18; TEMP 36.3; O2SAT 100
[2023-03-09] MEDS: Lisinopril 5 MG Tablet PO (10:06)
[2023-03-09] MEDS: Cholecalciferol (VIT D3) 25 MCG TABLET (1,000 UNITS) PO (10:06)
[2023-03-09] MEDS: APIXABAN 5 MG TABLET PO (10:06)
[2023-03-09] MEDS: Magnesium Chloride 64 MG Delay Rel.Tablet PO (10:06)
[2023-03-09] MEDS: Furosemide 20 MG Tablet PO (10:07)
[2023-03-09] MEDS: Potassium Chloride Oral Tablet 20 MEQ 10 MEQ PO (10:07)
[2023-03-09] MEDS: Cyanocobalamin 500 MCG Tablet PO (10:07)
[2023-03-09] MEDS: Digoxin 250 MCG Tablet PO (10:07)
[2023-03-09] MEDS: Empagliflozin 10 MG Tablet PO (10:07)
[2023-03-09 10:08] VITALS: PULSE 99
[2023-03-09] MEDS: Metoprolol Tartrate 100 MG Tablet PO (10:08)
[2023-03-09] MEDS: Senna/Docusate Sodium 1 Tablet 2 TABLET PO (10:16)
[2023-03-09] MEDS: Insulin Lispro 100 UNIT/ML INSULN.PEN SC (11:28)
[2023-03-09 11:47] LABS: Bedside Glucose 179 mg/dL (74-106)
--- NOTE | 2023-03-09 12:26 | DCINST_ITS ---
Discharge Instructions Diet Discharge Diet: Low fat / Low cholesterol and Carb Control Diet Activity Discharge Activity: Return to Normal Activity Dressing / Incision Call your doctor if you observe: Fever of 101 or Higher, Shortness of breath, Dizziness, Fainting spells, Swelling in the ankles, Chest pain and Increased palpitations (irregular heartbeat) Follow Up Care Test Results: Test results from this visit will be discussed in further detail at your follow- up appointment, if applicable. Discharge Plan Admission Admit Date/Time: 03/05/23 22:54 Attending Provider: Matthew Cavanaugh Primary Care Provider: Matthew Lea Consulting Providers: Heladio Guzman; Vik Fuentes Instructions Additional Instructions / Restrictions: Follow-up with your PCP in 3 to 5 days to monitor your renal function and electrolytes since you are on digoxin. You are also placed on Jardiance which is a diabetic medication but has shown benefit in people with systolic and diastolic heart failure. Discharge Orders/Prescriptions Prescriptions: New metoprolol tartrate 100 mg Tablet 100 mg PO Q12 30 Days Qty: 60 0RF Eliquis 5 mg Tablet 5 mg PO BID 30 Days Qty: 60 0RF digoxin 250 mcg (0.25 mg) Tablet 250 mcg PO DAILY 30 Days Qty: 30 0RF Jardiance 10 mg Tablet 10 mg PO DAILY 30 Days Qty: 30 0RF Continued atorvastatin 40 mg tablet 40 mg PO DAILY potassium chloride 20 mEq tablet,ER particles/crystals 10 meq PO BID lisinopril 30 mg tablet 30 mg PO DAILY furosemide 20 mg tablet 20 mg PO DAILY metformin 500 mg tablet extended release 24 hr 1,000 mg PO BID mecobalamin (vitamin B12) 500 mcg tablet,chewable 500 mcg PO DAILY cholecalciferol (vitamin D3) 25 mcg (1,000 unit) capsule 25 mcg PO DAILY biotin 5,000 mcg tablet,chewable 5,000 mcg PO DAILY magnesium 250 mg tablet 250 mg PO DAILY Discontinued metoprolol tartrate 25 mg tablet 12.5 mg PO Q12H Referrals / Follow Up: Vik Fuentes MD [Med Staff - Active Staff] - Within 1 Month Matthew Lea MD [Primary Care Provider] - Within 1 Week Disposition Disposition (needs filled in before D/C Order can be placed): Home, Self Care
--- NOTE | 2023-03-09 12:33 | DS.PCM_ITS ---
Providers Date of Admission: 03/05/23 Primary Care Physician: Dr. Matthew Lea MD Consultations 03/06/23 15:31 Consult: Cardiology Routine Consulting Provider: Vik Fuentes Reason for Consult: Reduced EF with afib/flutter EMERGENT Consult: No MD Notified: Yes Date Notified: 03/06/23 Time Notified: 15:31 Method of Notification: Verbal Reason For Visit: A-FIB WITH RVR Diagnosis Discharge Diagnosis (1) Atrial fibrillation with RVR: Status: Acute Code(s): I48.91 - Unspecified atrial fibrillation (2) Elevated troponin I level: Status: Acute Code(s): R77.8 - Other specified abnormalities of plasma proteins Medications at Discharge Home Medications atorvastatin 40 mg tablet 40 mg PO DAILY 03/05/23 biotin 5,000 mcg chewable tablet 5,000 mcg PO DAILY 03/05/23 cholecalciferol (vitamin D3) 25 mcg (1,000 unit) capsule 25 mcg PO DAILY 03/05/23 furosemide 20 mg tablet 20 mg PO DAILY 03/05/23 lisinopril 30 mg tablet 30 mg PO DAILY 03/05/23 magnesium 250 mg tablet 250 mg PO DAILY 03/05/23 mecobalamin (vitamin B12) 500 mcg chewable tablet 500 mcg PO DAILY 03/05/23 metformin 500 mg tablet,extended release 24 hr 1,000 mg PO BID 03/05/23 potassium chloride 20 mEq tablet,extended release(part/cryst) 10 meq PO BID 03/05/23 apixaban 5 mg tablet (Eliquis) 5 mg PO BID 30 days #60 tabs 03/09/23 digoxin 250 mcg (0.25 mg) tablet 250 mcg PO DAILY 30 days #30 tabs 03/09/23 empagliflozin 10 mg tablet (Jardiance) 10 mg PO DAILY 30 days #30 tabs 03/09/23 metoprolol tartrate 100 mg tablet 100 mg PO Q12 30 days #60 tabs 03/09/23 Hospital Course Operations None Procedures 2-D Echocardiogram, Cardiac catheterization and Stress test Summary of Care Provided Minutes Spent on Discharge: 38 Hospital Course: Per HPI: AVANI MENDEZ, is a 78 F significant history of congestive heart failure; hypertension; hyperlipidemia and diabetes mellitus who presents to the emergency department with 2 to 3 days of persistent dyspnea on exertion. Associated with her symptoms is mild pain in her left arm that she describes as a twinge. Her left arm pain occurred on the day before presentation and is no more. She reports that in the cause of 1 year she has gained about 30 pounds. She h as gained this weight since she is unable to follow recommendations of weight watchers at this time. She was prescribed a new diet plan when she disclosed to weight watchers that she is diabetic. She is unable to follow this stringent diet plan and as such she has gained weight. She reports a weight gain of half pound in the past week or so. She uses 1 pillow to sleep chronically; and that has not changed. She denies paroxysmal dyspnea. She denies any edema. She reports a diagnosis of congestive not too long after hysterectomy. She had the hysterectomy about 20 years ago. Reportedly because of fatigue her metoprolol dose was decreased from 25 mg p.o. twice daily to 12.5 mg twice daily. Hospital Course: 1. A-fib with RVR with an elevated troponin/HTN/HLD/chronic diastolic and systolic CHF?78-year-old female presented to the hospital with increasing dyspn ea on exertion. She was found to be A-fib with RVR which is a new diagnosis for her. She also had an elevated troponin which is demand ischemia. She initially had an echo with an EF of 40 to 45% with an RVSP of 40 mmHg. Because of some wall motion abnormalities cardiology was consulted and she proceeded with a stress test which demonstrated small apical perfusion defect at rest which was exaggerated post Lexiscan at that time she had an EF of 42% so we progressed with a heart cath. It showed that her EF was 30% and she had nonobstructive coronary artery disease. Her Cardizem drip was discontinued and she was placed back on increased dose of her metoprolol. Initially she was placed on 25 twice daily and this was increased to 50 twice daily when her heart rate was not controlled. Allergy added digoxin and her metoprolol was increased ultimately to 100 mg p.o. twice daily. She has been able to tolerate this without any major hypotension or symptoms. She was also started on Eliquis given her [id number] score and because of the reduced EF she was also placed on Jardiance. I discussed with her the plan for discharge today she expressed understanding of the risk benefits of going home and wanted to go home today. I do recommend follow-up with cardiology within the next month and with her PCP in the next 3 to 5 days. Of note I have elected to hold her lisinopril until she has outpatient follow-up with her primary care physician so this could be restarted in a controlled manner given the extensive changes made to her medication list. 2. DM2?can continue with her metformin but she was also placed on Jardiance for her heart failure so I do recommend closer outpatient monitoring and adjustment of her metformin if necessary. Physical Exam Narrative General: Alert, Oriented x3, Cooperative, No apparent distress HEENT: Atraumatic, PERRLA, EOMI, Normocephalic Oral: Moist Mucosa Neck: Supple, No JVD Lungs: Diminished, Normal air movement, No rhonchi, No wheeze, No rales Cardiovascular: Regular rate, irregular rhythm, Normal S1, Normal S2, No murmurs Abdomen: Soft, Non Tender, Non-Distended, No Hepato-splenomegaly Extremities: No edema, Capillary Refill Less than 3 Seconds Skin: No rashes, No breakdown Musculoskeletal: No Tenderness to Palpation of Joints or Extremities Neurological: Cranial nerves II-XII grossly intact, Motor Exam 5/5 strength throughout, Sensory exam intact to light touch and pain Psych/Mental Status: Normal Affect, Appropriate Weight / BMI Weight Weight: 164 lb 10.965 oz Body Mass Index (BMI) 31.1 ABG / Lab / Microbiology Data 03/08/23 04:10 03/08/23 04:10 Laboratory: Laboratory Results - last 24 hr 03/08/23 12:06: POC Glucose 117 H 03/08/23 16:26: POC Glucose 175 H 03/08/23 21:08: POC Glucose 146 H 03/09/23 06:34: POC Glucose 97 03/09/23 11:26: POC Glucose 179 H D/C Instructions Discharge Diet: Low fat / Low cholesterol and Carb Control Diet Call your doctor if you observe: Fever of 101 or Higher, Shortness of breath, Dizziness, Fainting spells, Swelling in the ankles, Chest pain and Increased palpitations (irregular heartbeat) Meaningful Use Info Meaningful Use Diagnoses (Choose all that apply): None applicable Discharge Plan Admission Admit Date/Time: 03/05/23 22:54 Attending Provider: Matthew Cavanaugh Primary Care Provider: Matthew Lea Consulting Providers: Heladio Guzman; Vik Fuentes Instructions Additional Instructions / Restrictions: Follow-up with your PCP in 3 to 5 days to monitor your renal function and electrolytes since you are on digoxin. You are also placed on Jardiance which is a diabetic medication but has shown benefit in people with systolic and diastolic heart failure. Discharge Orders/Prescriptions Prescriptions: New metoprolol tartrate 100 mg Tablet 100 mg PO Q12 30 Days Qty: 60 0RF Eliquis 5 mg Tablet 5 mg PO BID 30 Days Qty: 60 0RF digoxin 250 mcg (0.25 mg) Tablet 250 mcg PO DAILY 30 Days Qty: 30 0RF Jardiance 10 mg Tablet 10 mg PO DAILY 30 Days Qty: 30 0RF Continued atorvastatin 40 mg tablet 40 mg PO DAILY potassium chloride 20 mEq tablet,ER particles/crystals 10 meq PO BID furosemide 20 mg tablet 20 mg PO DAILY metformin 500 mg tablet extended release 24 hr 1,000 mg PO BID mecobalamin (vitamin B12) 500 mcg tablet,chewable 500 mcg PO DAILY cholecalciferol (vitamin D3) 25 mcg (1,000 unit) capsule 25 mcg PO DAILY biotin 5,000 mcg tablet,chewable 5,000 mcg PO DAILY magnesium 250 mg tablet 250 mg PO DAILY Held lisinopril 30 mg tablet 30 mg PO DAILY Hold Instructions: Resume on 03/14/23. Discontinued metoprolol tartrate 25 mg tablet 12.5 mg PO Q12H Referrals / Follow Up: Vik Fuentes MD [Med Staff - Active Staff] - Within 1 Month Matthew Lea MD [Primary Care Provider] - Within 1 Week Disposition Disposition (needs filled in before D/C Order can be placed): Home, Self Care Charges/Coding Visit Charges Inpatient E&M: 88312 Disch Hosp >30min
== END 2023-03-09 14:09 | disposition home or self-care (01) | DRG 287 ==
LOC: ED 22:59 → PCU 23:33
PROVIDERS: Admitting Provider Hospitalist; Emergency Provider Emergency Medicine; PCP Family Medicine; Visit Provider Family Medicine
DX: I48.91 Unspecified atrial fibrillation (principal); I50.42 Chronic combined systolic (congestive) and diastolic (congestive) heart failure; I27.20 Pulmonary hypertension, unspecified; I42.9 Cardiomyopathy, unspecified; I11.0 Hypertensive heart disease with heart failure; E11.9 Type 2 diabetes mellitus without complications; I07.1 Rheumatic tricuspid insufficiency; E78.5 Hyperlipidemia, unspecified; I25.10 Atherosclerotic heart disease of native coronary artery without angina pectoris; Z79.84 Long term (current) use of oral hypoglycemic drugs; N28.9 Disorder of kidney and ureter, unspecified; R77.8 Other specified abnormalities of plasma proteins; Z79.899 Other long term (current) drug therapy
CPT/HCPCS: 36415; 71046; 78452; 80048; 80061; 82962; 83735; 83880; 84443; 84484; 85025; 85379; 90471; 93005; 93017; 93306; 93458; 97802; 99152; 99153; 99285; A9500; J7040; Q9967; A4216; C1769; C1894; J2785

== ENCOUNTER 2023-05-08 10:13 | Day surgery (SDC) | payer MEDICARE, SELFPAY ==
[2023-04-29 12:41] LABS: Anion Gap 6 (5-15); BUN 21 mg/dL (7-18); BUN/Creat Ratio 20.4 RATIO (10-20); Calcium,Total 9.4 mg/dL (8.5-10.1); Chloride 104 mmol/L (98-107); Creatinine, Serum 1.03 mg/dL (0.55-1.02); EST Glomerular Filtration Rate 55 mL/min (>60); Est Glom Filt Rate - Afr Amer 67 mL/min (>60); Glucose 178 mg/dL (74-106); Potassium 4.2 mmol/L (3.5-5.1); Sodium Level 139 mmol/L (136-145)
[2023-05-07 08:19] VITALS: BMI 33.6
--- NOTE | 2023-05-08 12:42 | PCM.OP.PRO ---
Procedure Report Date of Procedure: 05/08/23 DC cardioversion 78-year-old lady with a history of atrial fibrillation chronic persistent. Patient was brought to cardiac catheterization lab in the postabsorptive nonsedated state. Informed consent was obtained. The patient has been on anticoagulation for uninterrupted 4 weeks. Patient was seen by Dr. Burroughs of the critical care division. Anterior-posterior pads were applied. Patient was administered 40 mg of intravenous propofol. After that 200 J of biphasic synchronized DC cardioversion energy were applied with prompt reversal to sinus rhythm. Patient tolerated the procedure well. Conclusion: Successful DC cardioversion from atrial fibrillation to sinus rhythm. Continue as per office protocol.
--- NOTE | 2023-05-08 12:42 | PCM.OP.PRO ---
Procedure Report Date of Procedure: 05/08/23 CONSCIOUS SEDATION REPORT DATE OF SERVICE: May 08, 2023 BRIEF HISTORY OF PRESENT ILLNESS: The patient is a 78-year-old female who presented to [facility] for elective outpatient cardioversion due to underlying atrial fibrillation. The patient is systemically anticoagulated on Eliquis. Her last surface echocardiogram in February 2023 demonstrated an ejection fraction of approximately 45%. The patient denied any prior anesthetic complications. She has never been previously diagnosed with asthma, COPD or obstructive sleep apnea. PHYSICAL EXAMINATION: VITAL SIGNS: Reviewed and were acceptable. GENERAL: The patient is a female, in no apparent distress, speaking in full sentences. HEENT: Normocephalic, atraumatic. Mucous membranes are moist and pink. Good mouth opening noted. Trachea is midline. Good neck mobility. CHEST: S1, S2 irregularly irregular. No murmurs, rubs or gallops were noted. LUNGS: Clear to auscultation bilaterally without appreciable wheezes, rales or rhonchi. ABDOMEN: Soft, nontender, nondistended. Positive bowel sounds. EXTREMITIES: There is no clubbing, cyanosis or edema. ASA Class: II DESCRIPTION OF PROCEDURE: After confirmation of informed consent, the patient's anesthesia plan was reviewed in detail. Propofol was chosen. Risks and benefits were reviewed and the patient agreed to proceed. At 1206, the patient was given 40 mg of propofol. The patient achieved an appropriate level of sedation and was given a 200 joule synchronized cardioversion by Dr. Lizama at the bedside. This was successful in achieving normal sinus rhythm. The patient was monitored until 1219, at which time she reached her baseline mental status and function. The patient tolerated the procedure well. COMPLICATIONS: None ESTIMATED BLOOD LOSS: None RECOMMENDATIONS: Okay to recover in usual fashion. Procedures Pulmonary 9xxxx: [id number] Con Sedation
== END 2023-05-08 13:10 | disposition home or self-care (01) ==
PROVIDERS: Physician Assistant Medical; PCP Internal Medicine; Referring Provider Internal Medicine Cardiovascular Disease; Visit Provider Internal Medicine Cardiovascular Disease
DX: I48.11 Longstanding persistent atrial fibrillation (principal); I11.0 Hypertensive heart disease with heart failure; I50.9 Heart failure, unspecified; I42.0 Dilated cardiomyopathy; I48.20 Chronic atrial fibrillation, unspecified; E11.9 Type 2 diabetes mellitus without complications; E78.5 Hyperlipidemia, unspecified; I25.10 Atherosclerotic heart disease of native coronary artery without angina pectoris; Z79.899 Other long term (current) drug therapy; Z79.01 Long term (current) use of anticoagulants; Z79.84 Long term (current) use of oral hypoglycemic drugs; I08.1 Rheumatic disorders of both mitral and tricuspid valves
CPT/HCPCS: 36415; 80048; 92960; 93005; J7040

== ENCOUNTER → 2023-07-22 | Outpatient (CLI) | payer MEDICARE, SELFPAY ==
--- OUTSIDE RECORDS SUMMARY | 2023-07-22 12:26 | XMS RPT_ITS | CCD ---
Author Name Unknown Address [address] [place], [place] [id number] Organization [facility] Care Team Providers Care Corrective Therapy Aide Name Role Phone Mitch Jaclyn CHENG Unavailable Unavailable Estefany Forte Unavailable Unavailable ESTEFANY FORTE Referring Unavailable ESTEFANY FORTE Attending Unavailable ESTEFANY FORTE Primary Care Unavailable ESTEFANY FORTE Primary Care Unavailable ESTEFANY FORTE Referring Unavailable ESTEFANY FORTE Attending Unavailable Venu, Dr. Estefany Copeland Attending Bobbya ble Venu, Dr. Estefany Copeland Primary Care Unavaila ble Venu, Dr. Estefany Copeland Attending Unavaila ble Venu, Dr. Estefany Copeland Primary Care Unavaila Kaley Johnston DO Primary Care Provider [phone] KALEY OMALLEY Attending Unavailable KALEY OMALLEY Primary Care Unavailable KALEY OMALLEY Primary Care Unavailable Medications Current Medications Medication Drug Class(es) Dates Sig (Normalized) Sig (Original) apixaban 5 mg oral tablet (1 source) Factor Xa Inhibitor Start: 03-09-2023 take 1 tablet by mouth twice daily Eliquis 5 mg tablet Take 1 tablet (5 mg) by mouth 2 times a day. 0 03/09/2023 Active atorvastatin 40 mg oral tablet (2 sources) HMG-CoA Reductase Inhibitor Start: 07-01-2023 take 1 tablet by mouth once daily atorvastatin (Lipitor) 40 mg tablet Indications: Mixed hyperlipidemia Take 1 tablet (40 mg) by mouth once daily. 90 tablet 3 07/01/2023 Active Problems Active Problems Problem Classification Problem Date Documented Da te Episodic/Chronic Congestive heart failure; nonhypertensive (4 sources) Chronic right-sided congestive heart failure; Translations: [Chronic right heart failure] Onset: 07-26-1998 07-01-2023 Chronic Diabetes mellitus without complication (6 sources) Type 2 diabetes mellitus without complication; Translations: [Type 2 diabetes mellitus without complications] Onset: 07-26-1998 07-01-2023 Chronic Disorders of lipid metabolism (4 sources) Mixed hyperlipidemia; Translations: [Mixed hyperlipidemia] Onset: 07-01-2023 07-01-2023 Chronic Essential hypertension (4 sources) Essential hypertension; Translations: [Essential (primary) hypertension] Onset: 07-01-2023 07-01-2023 Chronic Other and ill-defined heart disease (2 sources) Heart disease; Translations: [Heart disease, unspecified] Onset: 07-01-2023 07-01-2023 Chronic Other and ill-defined heart disease (2 sources) Heart disease, unspecified; Translations: [Heart disease, unspecified] Onset: 07-01-2023 Chronic Other connective tissue disease (1 source) Biceps tendinitis; Translations: [Bicipital tenosynovitis] Episodic Other non-traumatic joint disorders (1 source) Shoulder pain; Translations: [Pain in joint, shoulder region] Episodic Other non-traumatic joint disorders (1 source) Shoulder stiff; Translations: [Stiffness of joint, not elsewhere classified, shoulder region] Episodic Other screening for suspected conditions (not mental disorders or infectious disease) (5 sources) Encounter for screening mammogram for malignant neoplasm of breast; Translations: [Encounter for screening for osteoporosis] Onset: 08-06-2022 Episodic Other skin disorders (3 sources) Localized swelling, mass and lump, unspecified; Translations: [Localized swelling, mass and lump, unspecified] Onset: 08-27-2022 Episodic Other skin disorders (1 source) Localized swelling, mass and lump, left upper limb; Translations: [Localized swelling, mass and lump, left upper limb] Onset: 08-27-2022 Episodic Residual codes; unclassified (4 sources) Asymptomatic menopausal state; Translations: [Asymptomatic menopausal state] Onset: 08-06-2022 Episodic Past or Other Problems Problem Classification Problem Date Documented Da te Episodic/Chronic Unclassified (1 source) Onset: 07-01-2023 07-01-2023 NEGATED: Highlighted row has not occurred!Residual codes; unclassified (8 sources) Disease Episodic Results Test Name Value Interpretation Reference Range Facil ity Vital Signs Date Time Vital Sign Value Performing Clinician Faci lity 07-01-2023 13:08-0500 Body height 157.5 cm Kaley Binghameralirioer DO Work Phone: [facility] 07-01-2023 13:08-0500 Body mass index (BMI) [Ratio] 28.17 kg/m2 Kaley Oberhauser DO Work Phone: [facility] 07-01-2023 13:08-0500 Body weight 69.85 kg Kaley Binghameralirioer DO Work Phone: [facility] 07-01-2023 13:08-0500 Diastolic blood pressure 70 mm[Hg] Kaley Oberalirioer DO Work Phone: [facility] 07-01-2023 13:08-0500 Heart rate 105 /min Kaley Binghameralirioer DO Work Phone: [facility] 07-01-2023 13:08-0500 Systolic blood pressure 130 mm[Hg] Kaley Lucioer DO Work Phone: [facility] Encounters Encounter Date Encounter Type Care Provider Facility Start: 07-08-2023 End: 07-09-2023 ambulatory [facility] Start: 07-01-2023 End: 07-01-2023 ambulatory [facility] Start: 07-01-2023 End: 07-01-2023 Office outpatient new 45 minutes Kaley Omalley DO Work Phone: [facility] Primary [facility] Procedures Date Procedure Procedure Detail Performing Clinician Start: 07-08-2023 Comprehensive metabo lic 2000 panel - Serum or Plasma KALEY OMALLEY Start: 07-08-2023 Hemoglobin A1c/Hemoglobin.total in Blood KALEY OMALLEY Start: 07-08-2023 Lipid panel KALEY HUMPHREY Plan of Treatment Date Care Activity Detail Author Start: 07-01-2023 End: 07-01-2024 Comprehensive metabolic 2000 panel - Serum or Plasma Comprehensive Metabolic Panel Lab Routine Type 2 diabetes mellitus without complication, without long-term current use of insulin ([facility]) Expected: 07/01/2023 (Approximate), Expires: 07/01/2024 [facility] Work Phone: Immunizations Immunization Date Immunization Notes Care Provider Fa denis 03-19-2023 influenza virus vaccine, unspecified formulation Kaley Omalley DO Work Phone: [facility] Work Phone: Payers Date Payer Category Payer Medicare [employer] MEDICARE [id number] 2022-Present [address] [place] [address] [id number] 2020 Medicare [id number] 1945 Unknown [id number] 1945 Unknown [id number] 1945 Unknown [id number] 9 1945 Unknown [id number] 9 1945 Unknown [id number] 4 1945 Unknown [id number] 5 Social History Date Type Detail Facility Assertion Tobacco smoking consumption unknown (finding) [facility] Work Phone: Start: 07-01-2023 Tobacco smoking stat us MNIS Never smoked tobacco [facility] Work Phone: Start: 07-01-2023 Tobacco use and exposure Smokeless tobacco non-user [facility] Work Phone: Start: 07-01-2023 Alcohol intake Current drinke r of alcohol (finding) [facility] Work Phone: Start: 07-01-2023 History of Social function [facility] Work Phone: Start: 07-01-2023 Tobacco use panel [facility] Work Phone: Start: 1945 Sex Assigned At Not on file [facility] Work Phone: Start: 06-21-2023 End: 07-01-2023 Exposure to SARS-CoV-2 (event) Not sure [facility] Functional Status Date Assessment Result Facility NEGATED: Highlighted row Functional performance Functional status health issues are not documented Disease [facility] Work Phone: Mental Status Date Assessment Result Facility NEGATED: Highlighted row Cognitive function [Interpretation] Cognitive status health issues are not documented Disease [facility] Work Phone: History of Present illness Narrative 07-01-2023 Kaley Omalley, - 07/01/2023 1:00 PM EST Note Date & Type Note Facility 07-01-2023 History of Present illness Narrative Subjective Patient ID: Ana Mendez is a 78 y.o. female who presents for Establish Care (COLLEGE HIRE/EST CARE). HPI Patient is a 78 y.o. female patient who is here today to establish care. Pt has a pmhx of hld, htn, a fib, dmii. Pt was hospitalized in feb for new onset a fib. Pt had cardioversion. Sees Brent Fox. Review of Systems Constitutional: Negative for activity change, appetite change, chills and fatigue. HENT: Negative for congestion, postnasal drip, sinus pressure, sinus pain and sore throat. Respiratory: Negative for cough, shortness of breath and wheezing. Cardiovascular: Negative for chest pain and leg swelling. Gastrointestinal: Negative for abdominal distention, diarrhea, nausea and vomiting. Musculoskeletal: Negative for back pain. Neurological: Negative for weakness and numbness. Objective BP 130/70 Pulse 105 Ht 1.575 m (5' 2 ) Wt 69.9 kg (154 lb) BMI 28.17 kg/m Physical Exam Constitutional: General: She is not in acute distress. Appearance: Normal appearance. HENT: Head: Normocephalic. Right Ear: Tympanic membrane, ear canal and external ear normal. Left Ear: Tympanic membrane, ear canal and external ear normal. Ears: Comments: Cerumen bilaterally but not obstructing Nose: Nose normal. Mouth/Throat: Pharynx: No oropharyngeal exudate. Eyes: General: Right eye: No discharge. Left eye: No discharge. Extraocular Movements: Extraocular movements intact. Pupils: Pupils are equal, round, and reactive to light. Cardiovascular: Rate and Rhythm: Normal rate and regular rhythm. Heart sounds: No murmur heard. No gallop. Pulmonary: Effort: Pulmonary effort is normal. No respiratory distress. Breath sounds: Normal breath sounds. No wheezing. Abdominal: General: Bowel sounds are normal. There is no distension. Palpations: Abdomen is soft. Tenderness: There is no abdominal tenderness. Musculoskeletal: General: No swelling. Normal range of motion. Skin: General: Skin is warm and dry. Coloration: Skin is not jaundiced. Neurological: General: No focal deficit present. Mental Status: She is alert and oriented to person, place, and time. Cranial Nerves: No cranial nerve deficit. Psychiatric: Mood and Affect: Mood normal. Behavior: Behavior normal. Immunizations Flu shot 2022 COVID received Pna received Shingles received RSV recommended Mammo 08/02, wants to do every other year DEXA 08/02 Pap s/p hysterectomy Colonoscopy unsure on dates, will need to look through records Assessment/Plan Problem List Items Addressed This Visit Congestive heart failure (CMS/HCC) Relevant Medications digoxin (Lanoxin) 125 MCG tablet metoprolol tartrate (Lopressor) 100 mg tablet Diabetes mellitus (CMS/HCC) - Primary Relevant Medications metFORMIN (Glucophage) 1,000 mg tablet Other Relevant Orders Hemoglobin A1C Comprehensive Metabolic Panel Lipid Panel Hypertension Relevant Medications lisinopril 30 mg tablet Heart disease Relevant Medications digoxin (Lanoxin) 125 MCG tablet metoprolol tartrate (Lopressor) 100 mg tablet Mixed hyperlipidemia Relevant Medications atorvastatin (Lipitor) 40 mg tablet Atrial fibrillation, CHF, HTN, HLD - follows with Dr Lizama/Delisa Fox - had cardioversion in the past - continue lipitor 40mg po daily - continue digoxin - continue eliquis - continue lisinopril 30mg po daily - continue metoprolol 100mg po daily 2 DMII - will order A1c, cmp, lipid - continue metformin - continue jardiance Final diagnoses: [E11.9] Type 2 diabetes mellitus without complication, without long-term current use of insulin (CMS/HCC) [E78.2] Mixed hyperlipidemia [I10] Primary hypertension [I51.9] Heart disease [I50.812] Chronic right-sided congestive heart failure (CMS/HCC) documented in this encounter [facility] Work Phone: Evaluation note Note Date & Type Note Facility documented in this encounter [facility] Work Phone: Instructions Note Date & Type Note Facility [facility] Work Phone: Reason for referral (narrative) Consultation (Routine) - Authorized Note Date & Type Note Facility Referral ID Status Reason Start Date Expiration Date V isits Requested Visits Authorized Authorized 07/01/2023 06/30/2024 1 1 * Consultation (Routine) - Authorized Specialty Diagnoses / Procedures Referred By Mare sierra Referred To Contact Primary Care Procedures Follow Up In Primary Care - Established Kaley Omalley DO [address] [facility] [place] [address] Referral ID Status Reason Start Date Expiration Date V isits Requested Visits Authorized [id number] Authorized 07/01/2023 06/30/2024 1 1 [facility] Work Phone: Summary Purpose Family History No Family History Records FoundNo Family History Records FoundNo Family History Records FoundNo Family History Records FoundNo Family History Records FoundNo Family History Records FoundNo Family History Records Found Advance Directives No Advanced Directives Records FoundNo Advanced Directives Records FoundNo Advanced Directives Records FoundNo Advanced Directives Records FoundNo Advanced Directives Records FoundNo Advanced Directives Records FoundNo Advanced Directives Records Found Additional Source Comments INFORMATION SOURCE (unrecogn ized section and content) DATE CREATED AUTHOR AUTHOR'S ORGANIZ ATION 10/14/2020 [employer] DATE CREATED AUTHOR AUTHOR'S ORGANIZ ATION 12/05/2021 [facility] DATE CREATED AUTHOR AUTHOR'S ORGANIZ ATION 12/06/2021 [facility] DATE CREATED AUTHOR AUTHOR'S ORGANIZ ATION 08/31/2022 [facility] DATE CREATED AUTHOR AUTHOR'S ORGANIZ ATION 07/02/2023 [facility] DATE CREATED AUTHOR AUTHOR'S ORGANIZ ATION 07/14/2023 [facility] Reason for Visit (unrecogniz ed section and content) Care Teams (unrecognized sec tion and content) FOR RECORDS PERTAINING TO PATIENTS WHO ARE OR HAVE BEEN ENROLLED IN A CHEMICAL DEPENDENCY/SUBSTANCEABUSE PROGRAM, SOME INFORMATION MAY BE OMITTED. This clinical summary was aggregated from multiple sources. Caution should be exercised in using it in the provision of clinical care. This summary normalizes information from multiple sources, and as a consequence, information in this document may materially change the coding, format and clinical context of patient data. In addition, data may be omitted in some cases. CLINICAL DECISIONS SHOULD BE BASED ON THE PRIMARY CLINICAL RECORDS. [employer] provides no warranty or guarantee of the accuracy or completeness of information in this document.
[2023-07-22 14:12] LABS: Anion Gap 7 (5-15); BUN 21 mg/dL (7-18); BUN/Creat Ratio 23.7 RATIO (10-20); Calcium,Total 9.7 mg/dL (8.5-10.1); Chloride 107 mmol/L (98-107); Creatinine, Serum 0.89 mg/dL (0.55-1.02); EST Glomerular Filtration Rate 66 mL/min (>60); Est Glom Filt Rate - Afr Amer 80 mL/min (>60); Glucose 140 mg/dL (74-106); Potassium 4.3 mmol/L (3.5-5.1); Sodium Level 141 mmol/L (136-145)
== END | disposition home or self-care (01) ==
PROVIDERS: PCP Internal Medicine; Referring Provider Physician Assistant Medical; Visit Provider Physician Assistant Medical
DX: I48.91 Unspecified atrial fibrillation (principal); I42.9 Cardiomyopathy, unspecified
CPT/HCPCS: 36415; 80048

== ENCOUNTER → 2023-08-22 | Outpatient (CLI) | payer MEDICARE, SELFPAY ==
--- NOTE | 2023-08-22 09:36 | ECHOD_ITS ---
Reason For Study: DILATED CARDIOMYOPATHY Procedure This was a 2D Doppler, Color Flow transthoracic echocardiogram. Exam performed in department. Left Ventricle Normal LV size. Left ventricular systolic function is lower limits of normal. The estimated ejection fraction is 50 %. No regional wall motion abnormalities noted. Right Ventricle Normal RV size. Normal systolic function. Atria The left atrium is mildly enlarged. Normal right atrium. Tricuspid Valve Normal tricuspid valve. Mild (1+) tricuspid valve insufficiency. Pulmonary artery systolic pressure is 38 mmHg. Aortic Valve Trisinus/trileaflet aortic valve. Great Vessels Normal aortic root. The pulmonary artery is normal size. Inferior vena cava collapse with respiration. Pericardium/Pleural No pericardial effusion. MMode/2D Measurements & Calculations LVIDd: 4.8 cm IVSd: 0.98 cm Ao root diam: 3.0 cm LVIDs: 3.6 cm LVPWd: 0.96 cm RVDd: 3.7 cm FS: 24.1 % LAV(MOD-bp): 77.6 ml SV(MOD-sp4): 46.0 ml LVAd ap4: 28.0 cm2 LAV(MOD-bp) Indexed: 46.3 ml/m2 LVLd ap4: 7.1 cm LAV(MOD-sp2): 65.7 ml EDV(MOD-sp4): 91.4 ml LAV(MOD-sp4): 72.0 ml EDV(sp4-el): 93.7 ml LVAs ap4: 18.8 cm2 LVLs ap4: 6.5 cm ESV(MOD-sp4): 45.5 ml ESV(sp4-el): 46.1 ml EF(MOD-sp4): 50.3 % EF(sp4-el): 50.7 % SV(sp4-el): 47.5 ml LA dimension(2D): 4.1 cm LA A4 area: 23.3 cm2 TAPSE: 1.6 cm RA A4 area: 21.0 cm2 Doppler Measurements & Calculations MV E max jack: 90.3 cm/sec Ao V2 max: 111.5 cm/sec LV V1 max: 93.0 cm/sec Ao max P.0 mmHg LV V1 max P.5 mmHg PA V2 max: 74.6 cm/sec TR max jack: 292.0 cm/sec TR max P.1 mmHg ECHO/Echo Complete Interpretation Summary Normal LV size. Left ventricular systolic function is lower limits of normal. The estimated ejection fraction is 50 %. The left atrium is mildly enlarged. Pulmonary artery systolic pressure is 38 mmHg. Ordering Physician: Delisa Victoria/Ricardo Lizama Referring Physician: CASS OMALLEY Performed By: Liza Walker RDCS
--- OUTSIDE RECORDS SUMMARY | 2023-08-22 12:08 | XMS RPT_ITS | CCD ---
Author Name Unknown Address [address] [place], [place] [address] Organization [facility] Care Team Providers Care Process Maintenance Technician Name Role Phone Jaclyn Meyer PTA Unavailable Unavailable Estefany Forte Unavailable Unavailable ESTEFANY [...] Kaley Johnston DO Primary Care Provider [phone] KALEY OMALLEY Attending Unavailable KALEY OMALLEY Primary [...] Kaley Binghameralirioer DO Work Phone: [facility] 07-01-2023 13:08-0500 Body mass index (BMI) [Ratio] 28.17 kg/m2 Kaley Oberhauser DO Work Phone: [facility] 07-01-2023 13:08-0500 Body weight 69.85 kg Kaley Binghameralirioer DO Work Phone: [facility] 07-01-2023 13:08-0500 Diastolic blood pressure 70 mm[Hg] Kaley Oberalirioer DO Work Phone: [facility] 07-01-2023 13:08-0500 Heart rate 105 /min Kaley Binghameralirioer DO Work Phone: [facility] 07-01-2023 13:08-0500 Systolic blood pressure 130 mm[Hg] Kaley Lucioer DO Work Phone: [facility] Encounters Encounter Date Encounter Type Care Provider Facility Start: 07-08-2023 End: 07-09-2023 ambulatory [facility] Start: 07-01-2023 End: 07-01-2023 ambulatory [facility] Start: 07-01-2023 End: 07-01-2023 Office outpatient new 45 minutes Kaley Omalley DO Work Phone: [facility] Primary Care Procedures Date Procedure Procedure [...] complication, without long-term current use of insulin ([facility]) Expected: 07/01/2023 (Approximate), Expires: 07/01/2024 [facility] Work Phone: Immunizations Immunization Date Immunization Notes Care Provider Fa denis 03-19-2023 influenza virus vaccine, unspecified formulation Kaley Omalley DO Work Phone: [facility] Work Phone: Payers Date Payer Category Payer Medicare [employer]ARE [employer] MEDICARE [id number] 2022-Present [address] [place] [address] [id number] 2020 Medicare [id number] 1945 Unknown [id number] 1945 Unknown [id number] 1945 Unknown [id number] 9 1945 Unknown [id number] 9 1945 Unknown [id number] 4 1945 Unknown [id number] 5 Social History Date Type Detail Facility Assertion Tobacco smoking consumption unknown (finding) [facility] Work Phone: Start: 07-01-2023 Tobacco smoking stat us UTIS Never smoked tobacco [facility] Work Phone: Start: 07-01-2023 Tobacco use and exposure Smokeless tobacco non-user [facility] Work Phone: Start: 07-01-2023 Alcohol intake Current drinke r of alcohol (finding) [facility] Work Phone: Start: 07-01-2023 History of Social function [facility] Work Phone: Start: 07-01-2023 Tobacco use panel [facility] Work Phone: Start: 1945 Sex Assigned At Not on file [facility] Work Phone: Start: 06-21-2023 End: 07-01-2023 Exposure to SARS-CoV-2 (event) Not sure [facility] Functional Status Date Assessment Result Facility NEGATED: Highlighted row Functional performance Functional status health issues are not documented Disease [facility] Work Phone: Mental Status Date Assessment Result Facility NEGATED: Highlighted row Cognitive function [Interpretation] Cognitive status health issues are not documented Disease [facility] Work Phone: History of Present illness Narrative 07-01-2023 Kaley Omalley, - 07/01/2023 1:00 PM EST Note Date & Type Note Facility 07-01-2023 History of Present illness Narrative Subjective Patient ID: Ana Mendez is a 78 y.o. female who presents for Establish Care (PRINCIPAL SOFTWARE ENGINEER/EST CARE). HPI Patient is a 78 y.o. [...] (CMS/HCC) documented in this encounter [facility] Work Phone: Evaluation note Note Date & Type Note Facility documented in this encounter [facility] Work Phone: Instructions Note Date & Type Note Facility [facility] Work Phone: Reason for referral (narrative) Consultation [...] Care - Established Kaley Omalley DO [address] [facility] [place] [address] Referral ID Status Reason Start Date Expiration Date V isits Requested Visits Authorized [id number] Authorized 07/01/2023 06/30/2024 1 1 [facility] Work Phone: Summary Purpose Family History No [...] DATE CREATED AUTHOR AUTHOR'S ORGANIZ ATION 12/05/2021 [facility] DATE CREATED AUTHOR AUTHOR'S ORGANIZ ATION 12/06/2021 [facility] DATE CREATED AUTHOR AUTHOR'S ORGANIZ ATION 08/31/2022 [facility] DATE CREATED AUTHOR AUTHOR'S ORGANIZ ATION 07/02/2023 [facility] DATE CREATED AUTHOR AUTHOR'S ORGANIZ ATION 07/14/2023 [facility] Reason for Visit (unrecogniz ed section and [...] BE BASED ON THE PRIMARY CLINICAL RECORDS. [employer] provides no warranty or guarantee of the accuracy or completeness of information in this document.
== END | disposition home or self-care (01) ==
LOC: CVS 09:34
PROVIDERS: PCP Internal Medicine; Referring Provider Physician Assistant Medical; Visit Provider Physician Assistant Medical
DX: I42.0 Dilated cardiomyopathy (principal)
CPT/HCPCS: 93306

== ENCOUNTER → 2023-10-21 | Outpatient (CLI) | payer MEDICARE, SELFPAY ==
[2023-10-21 10:55] LABS: Anion Gap 8 (5-15); BUN 24 mg/dL (7-18); BUN/Creat Ratio 23.3 RATIO (10-20); Calcium,Total 9.9 mg/dL (8.5-10.1); Chloride 104 mmol/L (98-107); Creatinine, Serum 1.03 mg/dL (0.55-1.02); EST Glomerular Filtration Rate 55 mL/min (>60); Est Glom Filt Rate - Afr Amer 67 mL/min (>60); Glucose 203 mg/dL (74-106); Potassium 3.9 mmol/L (3.5-5.1); Sodium Level 138 mmol/L (136-145)
[2023-10-21 18:48] LABS: BNP,B-Type NATRIURETIC PEPTIDE 245.1 pg/mL (0-100)
== END | disposition home or self-care (01) ==
LOC: LAB 09:50
PROVIDERS: PCP Internal Medicine; Referring Provider Nurse Practitioner Gerontology; Visit Provider Nurse Practitioner Gerontology
DX: R06.09 Other forms of dyspnea (principal)
CPT/HCPCS: 36415; 80048; 83880

== ENCOUNTER → 2023-10-30 | Outpatient (CLI) | payer MEDICARE, SELFPAY ==
[2023-10-30 12:53] LABS: Anion Gap 8 (5-15); BUN 24 mg/dL (7-18); BUN/Creat Ratio 23.1 RATIO (10-20); Calcium,Total 9.8 mg/dL (8.5-10.1); Chloride 104 mmol/L (98-107); Creatinine, Serum 1.04 mg/dL (0.55-1.02); EST Glomerular Filtration Rate 55 mL/min (>60); Est Glom Filt Rate - Afr Amer 66 mL/min (>60); Glucose 225 mg/dL (74-106); Sodium Level 138 mmol/L (136-145)
== END | disposition home or self-care (01) ==
LOC: LAB 11:00
PROVIDERS: PCP Internal Medicine; Referring Provider Nurse Practitioner Gerontology; Visit Provider Nurse Practitioner Gerontology
DX: R06.09 Other forms of dyspnea (principal)
CPT/HCPCS: 36415; 80048

== ENCOUNTER → 2024-06-04 | Outpatient (CLI) | payer MEDICARE, SELFPAY ==
[2024-06-04 10:23] LABS: AST(SGOT) 19 U/L (15-37); Alanine Aminotransfer ALT/SGPT 27 U/L (13-56); Albumin, Serum 3.5 g/dL (3.2-5.0); Alkaline Phosphatase 84 U/L (45-117); Bilirubin, Direct 0.15 mg/dL (0.00-0.30); Cholesterol 152 mg/dL (200); Globulin 3.6 g/dL (2.2-4.2); High Density Lipoprotein 49 mg/dL; Protein, Total 7.1 g/dL (6.4-8.2); Triglycerides 278 mg/dL; Very Low Density Lipoprotein 56 mg/dL (5-40)
== END | disposition home or self-care (01) ==
LOC: LAB 09:02
PROVIDERS: PCP Internal Medicine; Referring Provider Physician Assistant Medical; Visit Provider Physician Assistant Medical
DX: E78.5 Hyperlipidemia, unspecified (principal)
CPT/HCPCS: 36415; 80061; 80076

== ENCOUNTER → 2024-09-17 | Outpatient (CLI) | payer MEDICARE, SELFPAY | END | disposition home or self-care (01) | LOC: PSN 08:37 | PROVIDERS: PCP Internal Medicine; Referring Provider Internal Medicine Cardiovascular Disease; Visit Provider Internal Medicine Cardiovascular Disease | DX: R06.09 Other forms of dyspnea (principal) | CPT/HCPCS: 93225; 93226 ==

== ENCOUNTER → 2024-09-21 | Outpatient (CLI) | payer MEDICARE, SELFPAY ==
[2024-09-21 12:44] LABS: Absolute Neutrophil Count 3.4 X10^3/uL (2.0-7.7); Basophil# 0.03 X10^3/uL; Basophil% 0.4 % (0-1); Eosinophil# 0.14 X10^3/uL; Eosinophils% 2.1 % (0-5); Hematocrit 46.1 % (37-47); Lymphocyte % 37.3 % (19-41); Mean Corp Hgb Conc 32.5 g/dL (32-36); Mean Corpuscular Hgb 30.4 pg (27.0-32.0); Mean Corpuscular Volume 93.5 fL (81-99); Mean Platelet Vol. 11.1 fl (6.2-12.0); Monocyte# 0.61 X10^3/uL; Monocyte% 9.1 % (0-10); NRBC Flagged by Analyzer 0 % (0-5); Neutrophil % 50.8 % (47-70); Platelet Count 188 K/mm3 (150-450); RBC Distribution Width SD 44.4 fl (35.1-43.9); Red Blood Count 4.93 M/mm3 (4.2-5.4); White Blood Count 6.7 K/mm3 (4.4-11.0)
[2024-09-21 13:13] LABS: Cholesterol 177 mg/dL (<=200); High Density Lipoprotein 53 mg/dL; Low Density Lipoprotein Calc. 65 mg/dL; Triglycerides 293 mg/dL; Very Low Density Lipoprotein 59 mg/dL (5-40); Vitamin B12 854 pg/mL (180-914); Vitamin D,25 Hydroxy 38.6 ng/mL (30-100); cholesterol:hdl ratio screen 3.31
[2024-09-21 13:18] LABS: ALB/GLOB Ratio 1.3 RATIO (0.9-2.4); AST(SGOT) 23 U/L (<=31); Alanine Aminotransfer ALT/SGPT 19 U/L (<=34); Albumin, Serum 4.4 g/dL (3.4-4.8); Alkaline Phosphatase 97 U/L (35-104); Anion Gap 15 (5-15); BUN 26 mg/dL (4-19); BUN/Creat Ratio 27.7 RATIO (10-20); Calcium,Total 10.4 mg/dL (7.6-11.0); Carbon Dioxide 24.1 mmol/L (21.0-32.0); Chloride 99 mmol/L (98-108); Creatinine, Serum 0.95 mg/dL (0.70-1.20); EST Glomerular Filtration Rate 62 (>60); Globulin 3.4 g/dL (2.2-4.2); Glucose 151 mg/dL (70-99); Potassium 4.4 mmol/L (3.3-5.1); Protein, Total 7.8 g/dL (5.9-8.4); Sodium Level 138 mmol/L (133-145); Total Bilirubin 0.63 mg/dL (0.00-1.30)
[2024-09-21 16:19] LABS: Microalbumin,Random Urine < 12.0 mg/L (NO RANGE EST.); Microalbumin:Creatinine Ratio UNABLE TO CALCULATE mg/g CRE
[2024-09-21 18:41] LABS: Digoxin Level 0.72 ng/mL (0.00-2.00)
== END | disposition home or self-care (01) ==
LOC: BIMLAB 11:05
PROVIDERS: PCP Internal Medicine; Referring Provider Internal Medicine; Visit Provider Internal Medicine
DX: I42.9 Cardiomyopathy, unspecified (principal); E11.9 Type 2 diabetes mellitus without complications; E55.9 Vitamin D deficiency, unspecified
CPT/HCPCS: 36415; 80053; 80061; 80162; 82043; 82306; 82570; 82607; 85025

== ENCOUNTER → 2025-03-30 | Outpatient (CLI) | payer MEDICARE, SELFPAY ==
[2025-03-30 13:20] LABS: Anion Gap 13 (5-15); BUN 24 mg/dL (4-19); BUN/Creat Ratio 24.2 RATIO (10-20); Calcium,Total 10.1 mg/dL (7.6-11.0); Carbon Dioxide 26.2 mmol/L (21.0-32.0); Chloride 98 mmol/L (98-108); Glucose 262 mg/dL (70-99); Potassium 4.9 mmol/L (3.3-5.1)
== END | disposition home or self-care (01) ==
LOC: LAB 10:49
PROVIDERS: PCP Internal Medicine; Referring Provider Physician Assistant Medical; Visit Provider Physician Assistant Medical
DX: I10 Essential (primary) hypertension (principal)
CPT/HCPCS: 36415; 80048